=== PATIENT | male | born 1955 | race Caucasian/White ===

== ENCOUNTER 2018-05-02 16:10 | Inpatient (IN) ==
[2018-05-02] MEDS ORDERED: *HR* LORazepam 0.5 MG TABLET PO ONE (22:38)
--- NOTE | 2018-05-02 22:54 | Internal Med History&Physical ---
Date of Encounter: 05/02/18 Time of Encounter: 22:48 Internal Medicine - H&P: HPI Chief complaint: shortness Admitted From: Home Plans for Post Hospital Care: Home History of present illness: Taryn Reddy is a 63 year old man with ongoing tobacco dependence with resultant COPD, hypertension and hyperlipidemia who was admitted to [place] inpatient service on 04/28/18 after complaints of a 7 day history of progressive dyspnea with cough productive of yellow sputum that worsened over the preceding 3. Of note he has had multiple admissions for COPD and pneumonia, smokes a pack a day for the past 50 years. He is on home 2L O2 that he uses prn. He has remained hospitalized since then, receiving nebulizer therapy, steroids and cefdinir for 2 days and ceftriaxone for the last 2. It was felt that he has not improved sufficiently enough for which reason he is transferred here for further care. Outside records reviewed: His x-ray was reviewed independently by me and not showing any signs of lobar consolidation. He has been afebrile throughout his hospitalization and has a 3L oxygen requirement. ABG done earlier today shows a PCO2 of 58 and pH of 7.37 with PaO2 of 77. On arrival here he is not in significant respiratory distress but has notable labored breathing. He states that he has only improved minimally since his hospitalization. He states that when he gets steroids he becomes very anxious and typically requires some sedatives. He reports a 50 year history of smoking cigarettes and marijuana. Past Med Surg Social Fam HX - Past Medical History Medical history: arthritis, COPD, hyperlipidemia Additional medical history: Chronic Bronchitis, Psychiatric history: no psych history - Past Surgical History Additional surgical history: right ankle surgery - Social History Smoking Status: Former smoker Smokeless Tobacco Status: No Alcohol use: none Drug use: marijuana - Family History Father Living Status: Age at : 80 Cause of : colon ca Hx Family Cancer: Yes (colon) Mother Living Status: Age at : 80 Cause of : Copd, emphysema Hx Family Cardiac Disorders: No Hx Family Respiratory Disorders: Yes Hx Family Cancer: Yes (Uterine/ skin cancer) Hx Family GI Disorders: No Hx Family Endocrine Disorder: No Hx Family Neuromuscular Disorders: No Hx Family Neurologic Disorders: No Hx Family HEENT Disorders: No Hx Family Autoimmune Disorders: No Internal Medicine - H&P: Meds Albuterol Sulfate [Proair Hfa] 8.5 aerosol IH Q6H PRN 05/05/16 [History] Quetiapine Fumarate [Seroquel] 50 mg PO HS 01/03/16 [History] Simvastatin 20 mg PO HS 01/04/16 [History] Tiotropium [Spiriva] 18 mcg IH DAILY 01/04/16 [History] Budesonide/Formoterol 80/4.5 [Symbicort 80/4.5] 1 puff IH BID #1 inhaler [Rx] Cefdinir [Omnicef] 300 mg PO DAILY #5 capsule 01/06/16 [Rx] Famotidine [Pepcid] 20 mg PO BIDAC #40 tablet 01/06/16 [Rx] 3 Allergy/AdvReac Type Severity Reaction Status Date / Time No Known Allergies Allergy Verified 04/28/18 10:35 All Systems PM: A 10-system review of systems was performed and is negative for pertinent findings except as documented above in the HPI. - Constitutional Vitals: Temp Pulse Resp BP Pulse Ox 97.8 F 117 17 148/113 98 05/02/18 20:01 05/02/18 20:01 05/02/18 20:01 05/02/18 20:01 05/02/18 20:01 Exam: Vitals: Reviewed General: Cachectic appearing with some difficulty breathing and shorted sentences but able to speak coherently. Skin: Somewhat flushed. HEENT: Moist mucous membranes. No conjunctivae pallor. Neck: No lymphadenopathy. No JVD. No carotid bruits. No palpable thyroid. Chest: Widened AP thoracic diameter with reduced expansion. Decreased breath sounds bilaterally with scattered wheezes. Heart: Normal S1 & S2; rhythmic. Tachycardic. Abdomen: Non-distended, soft and non-tender to palpation. Extremities: (+) fingernail clubbing. Neurological: Awake, alert and oriented to person, place and time. No focal deficits. Psych: Affect appropriate. - Assessment and plan (1) Acute exacerbation of chronic obstructive airways disease Current Visit: Yes Status: Acute Assessment and plan: Poor response to inpatient course thus far. Will place on Bipap urgently and nebulizer therapy q2-4hrs. Will place on IV steroids for now and later transition to PO. Start azithromycin 500mg daily for 3 days. Close respiratory watch and supplemental oxygen to maintain O2>92% Check another ABG in the morning. (2) Acute respiratory failure with hypoxia Current Visit: Yes Status: Acute Assessment and plan: Will keep on supplemental oxygen and continuous pulse oximetry. (3) Current smoker Current Visit: Yes Status: Chronic Assessment and plan: Ongoing counseling and education provided with resources made available to reinforce his statement that he has now quit. (4) HLD (hyperlipidemia) Current Visit: Yes Status: Chronic Assessment and plan: Continue simvastatin. Qualifiers: Hyperlipidemia type: unspecified Qualified Code(s): E78.5 - Hyperlipidemia , unspecified (5) Hypertension Current Visit: Yes Status: Chronic Assessment and plan: Will start amlodipine 5mg daily. Qualifiers: Hypertension type: essential hypertension Qualified Code(s): I10 - Essential (primary) hypertension (6) DVT prophylaxis Current Visit: Yes Status: Acute Assessment and plan: SubQ heparin ordered. - Time Spent With Patient Total time spent is greater than 50% in coordination of care (as documented) at patient's floor/unit and/or counseling patient: Greater than 35 minutes
[2018-05-02] MEDS: Azithromycin 500 MG in D5% in Water 250 ML IVPB SCH (23:08)
[2018-05-03 04:35] LABS: ABG Base Excess 10 mEq/L (-2 to 3); ABG HCO3 40 mEq/L (21-27); ABG Oxygen Saturation 97 % (95-98); ABG PCO2 79 mmHg (35-45); ABG PH 7.31 pH Units (7.32-7.45); ABG PO2 101 mmHg (85-104); ABG TCO2 42 mEq/L (20-26)
[2018-05-03] MEDS: *HR* Heparin 5,000 UNIT/ML VIAL SQ SCH ×3 (05:45→21:21)
[2018-05-03 05:54] LABS: Alanine Aminotransferase 63 Units/L (7-52); Albumin 3.9 g/dL (3.5-5.7); Alkaline Phosphatase 64 Units/L (34-104); Aspartate Amino Transferase 30 Units/L (13-39); BUN/Creatinine Ratio 44 (6-26); Bilirubin,Total 0.6 mg/dL (0.3-1.0); Blood Urea Nitrogen 27 mg/dL (8-23); Calcium 9.1 mg/dL (8.6-10.3); Carbon Dioxide 37 mEq/L (23-29); Chloride 102 mEq/L (98-107); Glucose 96 mg/dL (70-105); Osmolality,Calculated 299 (280-300); Potassium 4.6 mEq/L (3.5-5.1); Sodium 142 mEq/L (136-145); Total Protein 5.9 g/dL (6.4-8.9); eGFR For Non-African Americans > 60 (> 60)
[2018-05-03] MEDS ORDERED: MethylPREDNISolone 40 MG/ML VIAL IVP SCH (06:00)
[2018-05-03] MEDS: Ipratropium/Albuterol Neb 3 ML IH SCH ×2 (06:34→19:36)
[2018-05-03] MEDS: amLODIPine 5 MG TABLET PO SCH (07:53)
[2018-05-03] MEDS: Famotidine 20 MG TABLET PO SCH ×2 (07:53→15:23)
--- NOTE | 2018-05-03 08:58 | Internal Med Progress Note ---
Hospitalist Progress Note - Encounter Date of Encounter: 05/03/18 Time of Encounter: 08:50 - Exam Vitals: Temp Pulse Resp BP Pulse Ox 97.5 F L 86 20 124/77 99 05/03/18 07:00 05/03/18 07:00 05/03/18 07:00 05/03/18 07:00 05/03/18 07:00 Exam: Vitals: Reviewed General: Cachectic appearing with some difficulty breathing and shorted sentences but able to speak coherently. Skin: Somewhat flushed. HEENT: Moist mucous membranes. No conjunctivae pallor. Neck: No lymphadenopathy. No JVD. No carotid bruits. No palpable thyroid. Chest: Widened AP thoracic diameter with reduced expansion. Decreased breath sounds bilaterally with scattered wheezes. Heart: Normal S1 & S2; rhythmic. Tachycardic. Abdomen: Non-distended, soft and non-tender to palpation. Extremities: (+) fingernail clubbing. Neurological: Awake, alert and oriented to person, place and time. No focal deficits. Psych: Affect appropriate. - Assessment and Plan (1) Acute on chronic respiratory failure with hypoxia and hypercapnia Current Visit: Yes Status: Acute Assessment and Plan: Likely 2/2 to acute COPD exacerbation. On BIPAP, round the clock nebs, and antibiotics (2) Acute exacerbation of chronic obstructive airways disease Current Visit: Yes Status: Acute Assessment and Plan: Will place on Bipap urgently and nebulizer therapy q2-4hrs. Will place on IV steroids for now and later transition to PO. Start on ceftriaxone and azithromycin 500mg daily. Monitor with serial ABGs (3) Hypertension Current Visit: Yes Status: Chronic Assessment and Plan: Will start amlodipine 5mg daily. (4) HLD (hyperlipidemia) Current Visit: Yes Status: Chronic Assessment and Plan: Continue simvastatin. (5) Current smoker Current Visit: Yes Status: Chronic Assessment and Plan: Ongoing counseling and education provided with resources made available to reinforce his statement that he has now quit. (6) DVT prophylaxis Current Visit: Yes Status: Acute Assessment and Plan: SubQ heparin ordered. - Time Spent with Patient Total time spent is greater than 50% in coordination of care (as documented) at patient's floor/unit and/or counseling patient: Internal Medicine: Result - Labs CBC & Chem 7: 05/03/18 04:45 Labs: BMP 05/03/18 04:45 Sodium 142 Potassium 4.6 Chloride 102 Carbon Dioxide 37 H BUN 27 H Creatinine 0.62 L Glucose 96 Calcium 9.1 Liver Function 05/03/18 Range/Units 04:45 Total Bilirubin 0.6 (0.3-1.0) mg/dL AST 30 (13-39) Units/L ALT 63 H (7-52) Units/L Alkaline Phosphatase 64 (34-104) Units/L Albumin 3.9 (3.5-5.7) g/dL - ABG Interpretation ABG results: ABG ABG pH 7.31 pH Units (7.32-7.45) L 05/03/18 04:31 ABG pCO2 79 mmHg (35-45) H* 05/03/18 04:31 ABG pO2 101 mmHg (85-104) 05/03/18 04:31 ABG O2 Saturation 97 % (95-98) 05/03/18 04:31 Consult Discharge Plan - Plan Referrals: Kin Fontanez MD [Primary Care Provider] - (3) Hypertension Qualifiers: Hypertension type: essential hypertension Qualified Code(s): I10 - Essential (primary) hypertension (4) HLD (hyperlipidemia) Qualifiers: Hyperlipidemia type: unspecified Qualified Code(s): E78.5 - Hyperlipidemia, unspecified
[2018-05-03] MEDS: Budesonide/Formoterol 160/4.5 1 PUFF INH IH SCH ×2 (11:37→19:37)
[2018-05-03 11:47] LABS: ABG Base Excess 10 mEq/L (-2 to 3); ABG HCO3 39 mEq/L (21-27); ABG Oxygen Saturation 99 % (95-98); ABG PCO2 71 mmHg (35-45); ABG PH 7.35 pH Units (7.32-7.45); ABG PO2 130 mmHg (85-104); ABG TCO2 41 mEq/L (20-26)
[2018-05-03] MEDS: cefTRIAXone 1,000 MG in Water for inj. (sterile) 20 ML 10 ML IVP SCH (13:24)
[2018-05-03] MEDS: methylPREDNISolone 125 MG/2 ML VIAL IVP SCH ×2 (15:23→23:49)
[2018-05-03] MEDS ORDERED: Ipratropium/Albuterol Neb 3 ML ONE (19:31)
[2018-05-03] MEDS ORDERED: *HR* LORazepam 2 MG/ML VIAL IVP ONE (22:12)
[2018-05-03] MEDS ORDERED: Levalbuterol Neb 1.25 MG/3 ML ONE (23:34)
[2018-05-03] MEDS: Azithromycin 500 MG in D5% in Water 250 ML IVPB SCH (23:51)
[2018-05-04] MEDS: Levalbuterol Neb 1.25 MG/3 ML IH SCH ×4 (03:58→21:48)
[2018-05-04] MEDS: *HR* Heparin 5,000 UNIT/ML VIAL SQ SCH ×3 (05:45→20:38)
[2018-05-04 06:20] LABS: Basophils % 0.2 %; Hematocrit 41.9 % (37.5-50.1); Hemoglobin 13.6 g/dL (12.9-16.9); Immature Granulocytes % 0.8 % (0-4); Lymphocytes # 0.7 K/mcL (0.6-4.6); Lymphocytes % 5.8 %; Mean Corpuscular HGB Conc 32.5 g/dL (31.6-35.5); Mean Corpuscular Hemoglobin 31.4 pg (28.0-33.3); Mean Corpuscular Volume 96.8 fL (83.0-100.0); Monocytes # 0.4 K/mcL (0.0-1.3); Monocytes % 3.6 %; Platelet Count 179 K/mcL (140-400); Red Blood Count 4.33 M/mcL (4.19-5.50); Red Cell Distribution Width 13.2 % (11.5-14.5); Segmented Neutrophils % 89.6 %
[2018-05-04 06:39] LABS: BUN/Creatinine Ratio 44 (6-26); Blood Urea Nitrogen 24 mg/dL (8-23); Calcium 9.2 mg/dL (8.6-10.3); Carbon Dioxide 33 mEq/L (23-29); Chloride 100 mEq/L (98-107); Glucose 137 mg/dL (70-105); Magnesium 2.3 mg/dL (1.6-2.6); Osmolality,Calculated 298 (280-300); Phosphorous 3.2 mg/dL (2.7-4.5); Potassium 4.4 mEq/L (3.5-5.1); Sodium 141 mEq/L (136-145); eGFR For Non-African Americans > 60 (> 60)
[2018-05-04] MEDS: methylPREDNISolone 125 MG/2 ML VIAL IVP SCH ×3 (09:33→23:44)
[2018-05-04] MEDS: amLODIPine 5 MG TABLET PO SCH (09:33)
[2018-05-04] MEDS: cefTRIAXone 1,000 MG in Water for inj. (sterile) 20 ML 10 ML IVP SCH (09:34)
[2018-05-04] MEDS: Famotidine 20 MG TABLET PO SCH ×2 (09:34→16:29)
[2018-05-04] MEDS: Budesonide/Formoterol 160/4.5 1 PUFF INH IH SCH ×2 (11:13→21:48)
[2018-05-04 11:20] LABS: ABG Base Excess 13 mEq/L (-2 to 3); ABG HCO3 42 mEq/L (21-27); ABG Oxygen Saturation 98 % (95-98); ABG PCO2 71 mmHg (35-45); ABG PH 7.38 pH Units (7.32-7.45); ABG PO2 111 mmHg (85-104); ABG TCO2 44 mEq/L (20-26)
[2018-05-04] MEDS: Nicotine 21 MG PATCH.TD24 TD SCH (11:47)
--- NOTE | 2018-05-04 14:04 | Internal Med Progress Note ---
Hospitalist Progress Note - Encounter Date of Encounter: 05/04/18 Time of Encounter: 10:30 - Subjective Interval History: Patient continues to remain short of breath even at rest, worse after speaking long sentences. Saturating well on nasal cannula. Denies chest pain, cough, wheezing, fever or chills. Continues to smoke, reports he just quit about one week ago. Does not follow with pulmonology as outpatient. Per nursing staff, patient was very agitated with BiPAP last night, received a dose of IV Ativan after which he became notably more confused and combative, had to be placed with a sitter. Currently alert and oriented; - Exam Vitals: Temp Pulse Resp BP Pulse Ox 97.8 F 77 16 137/90 100 05/04/18 11:00 05/04/18 11:00 05/04/18 11:13 05/04/18 11:00 05/04/18 11:13 Exam: General: Well-developed male sitting up in bed, mild distress, tachypneic; Skin: Warm and supple Chest: barrel chest; decreased air entry B/L, occasional expiratory wheezing+ Heart: Normal S1 & S2; rhythmic. No rubs or murmurs. Tachycardic; Abdomen: Non-distended, soft and nontender Extremities: No clubbing, cyanosis or edema. No calf tenderness. Normal distal pulses. Neurological: Awake, alert and oriented to person, place and time. No focal deficits. Psych: seems anxious; - Assessment and Plan (1) Acute exacerbation of chronic obstructive airways disease Current Visit: Yes Status: Acute Assessment and Plan: Patient likely has advanced COPD, along with tobacco dependence, now in exacerbation. Has received at least 4-5 days of cephalosporins, started on azithromycin yesterday. We will discontinue Rocephin and continue azithromycin. Continue IV steroids, bronchodilator nebulization, supplemental oxygen as needed. When necessary BiPAP support. ABG reviewed-compensated pH with PCO2 71 , which is probably his baseline. Patient likely would require overnight BiPAP qualification study. Check CT chest. We will consult pulmonology for further recommendations. (2) Hypertension Current Visit: Yes Status: Chronic Assessment and Plan: Blood pressure acceptable. Continue current management. (3) HLD (hyperlipidemia) Current Visit: Yes Status: Chronic (4) Current smoker Current Visit: Yes Status: Chronic Assessment and Plan: Smoking cessation counseling done, for 3 minutes. Start nicotine transdermal patch as needed. (5) DVT prophylaxis Current Visit: Yes Status: Acute Assessment and Plan: On subcutaneous heparin. (6) Acute on chronic respiratory failure with hypoxia and hypercapnia Current Visit: Yes Status: Acute Assessment and Plan: Currently saturating in low 90s on 4 L/m nasal cannula. He will require 6 minute walk test prior to discharge. - Time Spent with Patient Total time spent is greater than 50% in coordination of care (as documented) at patient's floor/unit and/or counseling patient: Internal Medicine: Result - Labs CBC & Chem 7: 05/04/18 05:25 05/04/18 05:25 Labs: Short CBC 05/04/18 Range/Units 05:25 WBC 11.2 H D (4.3-11.1) K/mcL Hgb 13.6 D (12.9-16.9) g/dL Hct 41.9 (37.5-50.1) % Plt Count 179 (140-400) K/mcL Neutrophils # 10.0 H (1.6-8.9) K/mcL BMP 05/04/18 05:25 Sodium 141 Potassium 4.4 Chloride 100 Carbon Dioxide 33 H BUN 24 H Creatinine 0.54 L Glucose 137 H Calcium 9.2 - ABG Interpretation ABG results: ABG ABG pH 7.38 pH Units (7.32-7.45) 05/04/18 11:12 ABG pCO2 71 mmHg (35-45) H* 05/04/18 11:12 ABG pO2 111 mmHg (85-104) H 05/04/18 11:12 ABG O2 Saturation 98 % (95-98) 05/04/18 11:12 - Impressions Impressions Chest CT 05/04/18 11:45 IMPRESSION: Moderate COPD. No evidence of acute process within the chest. D/ / 05/04/2018 13:33:59 Alejandro Tinoco MD / [facility]arter Interpreting Provider: Alejandro Tinoco MD - VTE Documentation of Mechanical Device: Graduated compression elastic hosiery Consult Discharge Plan - Plan Referrals: Kin Fontanez MD [Primary Care Provider] - (2) Hypertension Qualifiers: Hypertension type: essential hypertension Qualified Code(s): I10 - Essential (primary) hypertension (3) HLD (hyperlipidemia) Qualifiers: Hyperlipidemia type: unspecified Qualified Code(s): E78.5 - Hyperlipidemia, unspecified
--- NOTE | 2018-05-04 14:40 | Pulmonology Consult Note ---
Date of Encounter: 05/04/18 Time of Encounter: 13:30 Assessment and Plan (1) Acute exacerbation of chronic obstructive airways disease Current Visit: Yes Status: Acute Clinically patient has advanced COPD and has significant history of tobacco as well as marijuana abuse for more than 50 years and had discussed with him in length about important of quit smoking tobacco and marijuana and he stated he will do that. Patient is on appropriate treatment with systemic steroid, bronchodilators and empiric antibiotic. As outpatient he will need pulmonary function test as well as pulmonary rehabilitation. I have explained to him if he does not quit smoking prognosis is poor. Thank you for consultation. (2) Acute on chronic respiratory failure with hypoxia and hypercapnia Current Visit: Yes Status: Acute According to his ABG he has evidence of compensated primarily respiratory acidosis with hypercapnia and noninvasive ventilation would be helpful if patient and if they worsen and hopefully that will prevent invasive mechanical ventilation. (3) Tobacco abuse Current Visit: No Status: Chronic Advised patient to quit smoking. History of Present Illness Consult date: 05/04/18 Requesting physician: Carmen Gonsales Reason for consult: COPD Chief complaint: Dyspnea History of present illness: This is pleasant 63-year-old male with significant smoking tobacco and marijuana for more than 50 years who presented to the hospital with worsening of shortness of breath. Patient stated he has seen a strainer cleaner in the past and he is on long-term oxygen therapy at home at 2 L permanent. Patient has more productive cough, wheezing and dyspnea but he denies any hemoptysis. Patient stated that he is not tolerating prednisone, however he is receiving Solu-Medrol and he can tolerate ipratropium according to him. Patient denies any significant weight loss and it is not clear which inhalers he is using give any at home. Patient denies any family history of COPD and denies any contact with sick patients and he was treated as outpatient without significant improvement. Patient denies any fever or chills. He had an ABG which showed evidence of hypercapnic respiratory failure. Past Med Surg Social Fam HX - Past Medical History Medical history: arthritis, COPD, hyperlipidemia Additional medical history: Chronic Bronchitis, Psychiatric history: no psych history - Past Surgical History Additional surgical history: right ankle surgery - Social History Smoking Status: Former smoker Smokeless Tobacco Status: No Alcohol use: none Drug use: marijuana - Family History Father Living Status: Age at : 80 Cause of : colon ca Hx Family Cancer: Yes (colon) Mother Living Status: Age at : 80 Cause of : Copd, emphysema Hx Family Cardiac Disorders: No Hx Family Respiratory Disorders: Yes Hx Family Cancer: Yes (Uterine/ skin cancer) Hx Family GI Disorders: No Hx Family Endocrine Disorder: No Hx Family Neuromuscular Disorders: No Hx Family Neurologic Disorders: No Hx Family HEENT Disorders: No Hx Family Autoimmune Disorders: No Medications and Allergies Albuterol Sulfate [Proair Hfa] 8.5 aerosol IH Q6H PRN 01/03/16 [History] Quetiapine Fumarate [Seroquel] 50 mg PO HS 01/03/16 [History] Simvastatin 20 mg PO HS 01/04/16 [History] Budesonide/Formoterol 80/4.5 [Symbicort 80/4.5] 1 puff IH BID #1 inhaler [Rx] Aclidinium [place] [Tudorza Pressair] 1 puff IH BID 05/04/18 [History] 3 Allergy/AdvReac Type Severity Reaction Status Date / Time lorazepam [From Ativan] AdvReac Confusion Verified 05/04/18 02:09 All Systems: The remainder of the systems were reviewed and are negative Physical Examination Vital Signs: Vital Signs, Last 4 Hours Temp Pulse Resp BP Pulse Ox 05/04/18 11:13 16 100 05/04/18 11:00 97.8 F 77 16 137/90 99 General: Patient is in no acute distress. HEENT: Normocephalic atraumatic, pupils are equal round and reactive to light and accommodation, anicteric sclera, nares is patent, mucous membranes moist, no JVD, trachea is midline Cardiovascular: Normal sinus rhythm, S1 and S2 audible, no murmur or rubs Respiratory: Diminished and wheezing to auscultation bilaterally. Mild to moderate distress. wheezing. Patient using accessory muscles. Patient has barrel chest. Abdomen: Soft, nontender, nondistended, positive bowel sounds in all 4 quadrants Extremities: Warm, dry, trace lower extremity edema. Normal capillary refill. Neuro: Alert and oriented and follows commands. Grossly no neuro deficits. Skin: Warm to touch : No obvious abnormalities. Psych: Normal Results - Laboratory Findings CBC and BMP: 05/04/18 05:25 05/04/18 05:25 ABG ABG pH 7.38 pH Units (7.32-7.45) 05/04/18 11:12 ABG pCO2 71 mmHg (35-45) H* 05/04/18 11:12 ABG pO2 111 mmHg (85-104) H 05/04/18 11:12 ABG O2 Saturation 98 % (95-98) 05/04/18 11:12 Abnormal lab findings: Abnormal lab results WBC 11.2 K/mcL (4.3-11.1) H D 05/04/18 05:25 MPV 9.0 fL (9.4-12.4) L 05/04/18 05:25 Neutrophils # 10.0 K/mcL (1.6-8.9) H 05/04/18 05:25 ABG pCO2 71 mmHg (35-45) H* 05/04/18 11:12 ABG pO2 111 mmHg (85-104) H 05/04/18 11:12 ABG HCO3 42 mEq/L (21-27) H 05/04/18 11:12 ABG Total CO2 44 mEq/L (20-26) H 05/04/18 11:12 ABG Base Excess 13 mEq/L (-2 to 3) H 05/04/18 11:12 Carbon Dioxide 33 mEq/L (23-29) H 05/04/18 05:25 BUN 24 mg/dL (8-23) H 05/04/18 05:25 Creatinine 0.54 mg/dL (0.70-1.30) L 05/04/18 05:25 BUN/Creatinine Ratio 44 (6-26) H 05/04/18 05:25 Glucose 137 mg/dL (70-105) H 05/04/18 05:25 ALT 63 Units/L (7-52) H 05/03/18 04:45 Serum Total Protein 5.9 g/dL (6.4-8.9) L 05/03/18 04:45 Globulin 2.0 g/dL (2.4-3.5) L 05/03/18 04:45 - Diagnostic Findings Chest x-ray: report reviewed, image reviewed - Clinical Findings Intake & Output: Intake & Output 05/03/18 05/04/18 05/04/18 23:59 07:59 15:59 Intake Total 120 / 120 0 / 0 500 / 500 Output Total 140 / 140 350 / 350 200 / 200 Balance -20 / -20 -350 / -350 300 / 300 Weight 66.8 kg Consult Discharge Plan - Plan Referrals: Kin Fontanez MD [Primary Care Provider] -
[2018-05-04] MEDS: Azithromycin 500 MG in D5% in Water 250 ML IVPB SCH (23:43)
[2018-05-05] MEDS: Levalbuterol Neb 1.25 MG/3 ML IH SCH ×4 (03:05→23:09)
[2018-05-05 04:34] LABS: Basophils % 0.2 %; Hematocrit 40.9 % (37.5-50.1); Hemoglobin 13.4 g/dL (12.9-16.9); Immature Granulocytes % 1.3 % (0-4); Lymphocytes # 0.7 K/mcL (0.6-4.6); Lymphocytes % 7.6 %; Mean Corpuscular HGB Conc 32.8 g/dL (31.6-35.5); Mean Corpuscular Hemoglobin 31.5 pg (28.0-33.3); Monocytes # 0.5 K/mcL (0.0-1.3); Monocytes % 5.3 %; Neutrophils # 7.9 K/mcL (1.6-8.9); Platelet Count 183 K/mcL (140-400); Red Blood Count 4.26 M/mcL (4.19-5.50); Red Cell Distribution Width 13.2 % (11.5-14.5); Segmented Neutrophils % 85.6 %
[2018-05-05 04:59] LABS: BUN/Creatinine Ratio 44 (6-26); Blood Urea Nitrogen 25 mg/dL (8-23); Calcium 9.2 mg/dL (8.6-10.3); Carbon Dioxide 37 mEq/L (23-29); Chloride 99 mEq/L (98-107); Glucose 158 mg/dL (70-105); Magnesium 2.4 mg/dL (1.6-2.6); Osmolality,Calculated 300 (280-300); Phosphorous 3.3 mg/dL (2.7-4.5); Potassium 4.3 mEq/L (3.5-5.1); Sodium 141 mEq/L (136-145); eGFR For Non-African Americans > 60 (> 60)
[2018-05-05] MEDS: *HR* Heparin 5,000 UNIT/ML VIAL SQ SCH ×3 (06:22→21:30)
[2018-05-05] MEDS: Famotidine 20 MG TABLET PO SCH ×2 (08:22→15:27)
[2018-05-05] MEDS: amLODIPine 5 MG TABLET PO SCH (08:22)
[2018-05-05] MEDS: methylPREDNISolone 125 MG/2 ML VIAL IVP SCH (08:22)
[2018-05-05] MEDS: Nicotine 21 MG PATCH.TD24 TD SCH (08:24)
--- NOTE | 2018-05-05 08:26 | Pulmonology Progress Note ---
<June Samaniego M - Last Filed: 05/05/18 16:11> Date of Encounter: 05/05/18 Assessment and Plan (1) Acute exacerbation of chronic obstructive airways disease Current Visit: Yes Status: Acute (2) Acute on chronic respiratory failure with hypoxia and hypercapnia Current Visit: Yes Status: Acute (3) Tobacco abuse Current Visit: No Status: Chronic Objective PUL Vital signs: Last Vital Signs Temp 98.6 F 05/05/18 15:52 Pulse 94 05/05/18 15:52 Resp 16 05/05/18 15:53 BP 147/88 05/05/18 15:52 Pulse Ox 97 05/05/18 15:53 Results - Laboratory Findings CBC and BMP: 05/05/18 03:22 05/05/18 03:22 ABG ABG pH 7.38 pH Units (7.32-7.45) 05/04/18 11:12 ABG pCO2 71 mmHg (35-45) H* 05/04/18 11:12 ABG pO2 111 mmHg (85-104) H 05/04/18 11:12 ABG O2 Saturation 98 % (95-98) 05/04/18 11:12 Abnormal lab findings: Abnormal lab results MPV 9.0 fL (9.4-12.4) L 05/05/18 03:22 ABG pCO2 71 mmHg (35-45) H* 05/04/18 11:12 ABG pO2 111 mmHg (85-104) H 05/04/18 11:12 ABG HCO3 42 mEq/L (21-27) H 05/04/18 11:12 ABG Total CO2 44 mEq/L (20-26) H 05/04/18 11:12 ABG Base Excess 13 mEq/L (-2 to 3) H 05/04/18 11:12 Carbon Dioxide 37 mEq/L (23-29) H 05/05/18 03:22 BUN 25 mg/dL (8-23) H 05/05/18 03:22 Creatinine 0.57 mg/dL (0.70-1.30) L 05/05/18 03:22 BUN/Creatinine Ratio 44 (6-26) H 05/05/18 03:22 Glucose 158 mg/dL (70-105) H 05/05/18 03:22 ALT 63 Units/L (7-52) H 05/03/18 04:45 Serum Total Protein 5.9 g/dL (6.4-8.9) L 05/03/18 04:45 Globulin 2.0 g/dL (2.4-3.5) L 05/03/18 04:45 - Clinical Findings Intake & Output: Intake & Output 05/05/18 05/05/18 05/05/18 07:59 15:59 23:59 Intake Total 325 / 325 480 / 480 Output Total 300 / 300 425 / 425 Balance 25 55 / 55 Weight 66 kg Consult Discharge Plan - Plan Referrals: Kin Fontanez MD [Primary Care Provider] - - Attending Attestation I examined this patient and my medical decision-making was reviewed with the Resident Physician. I agree with the documented findings, disposition and treatment plan as described except to the extent set forth below. Patient seen and examined. Labs, radiology, chart personally reviewed. Agree with resident's history and physical, assessment, plan with following comments: HAND PACKER: Patient follows commands, Pulmonary: Acceptable oxygenation and ventilation. Overall there is no significant changes in patient condition which I expect it will be a slow recovery because of his advanced lung disease. This was discussed with primary team and please call for any questions.. <Oniel Carpenter - Last Filed: 05/05/18 17:02> Date of Encounter: 05/05/18 Time of Encounter: 11:23 Assessment and Plan (1) Acute exacerbation of chronic obstructive airways disease Current Visit: Yes Status: Acute No clinical change at this time Continue Symbicort and Albuterol nebs Add Spiriva which is pt's home med as well Continue Azithromycin (Day 4) Continue Solumedrol 60mg q8h Continue BiPAP as tolerated Supplemental O2 with SpO2 goal of >88% (2) Tobacco abuse Current Visit: No Status: Chronic Discussed importance of cessation for >10 minutes Continue nicoderm patch Subjective Principal diagnosis: COPD exacerbation Interval history: No acute events overnight, however pt was experiencing significant dyspnea during the encounter with this provider. Pt stated he tried to use the BiPAP earlier but felt like he "couldn't get any air". Of note, pt has history of panic attacks, and was requesting anxiety medication at this time. Denies any fever, chills, chest pain, abdominal pain, nausea, vomiting, dizziness, numbness, tingling, or headache. Objective PUL Vital signs: Last Vital Signs Temp 97.6 F 05/05/18 07:02 Pulse 87 05/05/18 07:02 Resp 16 05/05/18 07:02 BP 149/83 05/05/18 07:02 Pulse Ox 97 05/05/18 07:02 General appearance: no acute distress Eyes: nonicteric ENT: oropharynx moist Neck: supple, no lymphadenopathy, no JVD Effort: very labored Auscultation: bilateral: wheezes Percussion: bilateral: not dull Tactile fremitus: bilateral: normal Cardiovascular: other (tachycardic ) Integumentary: normal Extremities: no cyanosis, no edema, no clubbing, pink and warm Musculoskeletal: no deformities Gait: normal posture normal mental status, non-focal exam mood appropriate, affect normal Results - Laboratory Findings CBC and BMP: 05/05/18 03:22 05/05/18 03:22 ABG ABG pH 7.38 pH Units (7.32-7.45) 05/04/18 11:12 ABG pCO2 71 mmHg (35-45) H* 05/04/18 11:12 ABG pO2 111 mmHg (85-104) H 05/04/18 11:12 ABG O2 Saturation 98 % (95-98) 05/04/18 11:12 Abnormal lab findings: Abnormal lab results MPV 9.0 fL (9.4-12.4) L 05/05/18 03:22 ABG pCO2 71 mmHg (35-45) H* 05/04/18 11:12 ABG pO2 111 mmHg (85-104) H 05/04/18 11:12 ABG HCO3 42 mEq/L (21-27) H 05/04/18 11:12 ABG Total CO2 44 mEq/L (20-26) H 05/04/18 11:12 ABG Base Excess 13 mEq/L (-2 to 3) H 05/04/18 11:12 Carbon Dioxide 37 mEq/L (23-29) H 05/05/18 03:22 BUN 25 mg/dL (8-23) H 05/05/18 03:22 Creatinine 0.57 mg/dL (0.70-1.30) L 05/05/18 03:22 BUN/Creatinine Ratio 44 (6-26) H 05/05/18 03:22 Glucose 158 mg/dL (70-105) H 05/05/18 03:22 ALT 63 Units/L (7-52) H 05/03/18 04:45 Serum Total Protein 5.9 g/dL (6.4-8.9) L 05/03/18 04:45 Globulin 2.0 g/dL (2.4-3.5) L 05/03/18 04:45 - Diagnostic Findings CT scan - chest: report reviewed, image reviewed - Clinical Findings Intake & Output: Intake & Output 05/04/18 05/05/18 05/05/18 23:59 07:59 15:59 Intake Total 220 / 220 325 / 325 Output Total 200 / 200 300 / 300 Balance 25 / 25 Weight 66 kg - VTE Documentation of Mechanical Device: Graduated compression elastic hosiery
[2018-05-05] MEDS: Budesonide/Formoterol 160/4.5 1 PUFF INH IH SCH ×2 (10:44→23:09)
[2018-05-05] MEDS: MethylPREDNISolone 40 MG/ML VIAL IVP SCH (15:27)
[2018-05-05] MEDS: Tiotropium 18 MCG inhalation IH SCH (15:50)
--- NOTE | 2018-05-05 16:08 | Internal Med Progress Note ---
Hospitalist Progress Note - Encounter Date of Encounter: 05/05/18 Time of Encounter: 09:45 - Subjective Interval History: Patient has underlying anxiety; continues to have abdominal muscle use for breathing; reports some shortness of breath even at rest. No fever/chills, abdominal pain, cough; off 1:1 sitter now; - Exam Vitals: Temp Pulse Resp BP Pulse Ox 98.6 F 94 16 147/88 97 05/05/18 15:52 05/05/18 15:52 05/05/18 15:53 05/05/18 15:52 05/05/18 15:53 Exam: General: Well-developed male sitting up in bed, mild distress, tachypneic; Skin: Warm and supple Chest: barrel chest; decreased air entry B/L, occasional expiratory wheezing+ ? paradoxical breathing Heart: Normal S1 & S2; rhythmic. No rubs or murmurs. Abdomen: Non-distended, soft and nontender Extremities: No clubbing, cyanosis or edema. No calf tenderness. Normal distal pulses. Neurological: Awake, alert and oriented to person, place and time. No focal deficits. Psych: seems anxious; - Assessment and Plan (1) Acute exacerbation of chronic obstructive airways disease Current Visit: Yes Status: Acute Assessment and Plan: Patient likely has advanced COPD, along with tobacco dependence, now in exacerbation. Pulmonology consult appreciated. Continue azithromycin, taper down IV steroids as tolerated. Continue bronchodilator nebulization, ICS, supplemental oxygen, wean down FiO2 as tolerated. Patient would probably benefit from noninvasive positive pressure ventilation with BiPAP support as tolerated, although he cannot wear it continuously due to anxiety. We will start when necessary hydroxyzine for anxiety. CT chest shows moderate COPD, no acute process. (2) Hypertension Current Visit: Yes Status: Chronic Assessment and Plan: Blood pressure minimally elevated above target. Increase amlodipine, monitor closely. (3) HLD (hyperlipidemia) Current Visit: Yes Status: Chronic (4) Current smoker Current Visit: Yes Status: Chronic Assessment and Plan: Continue nicotine transdermal patch as needed. (5) DVT prophylaxis Current Visit: Yes Status: Acute (6) Acute on chronic respiratory failure with hypoxia and hypercapnia Current Visit: Yes Status: Acute Assessment and Plan: Patient does have 3 L/m supplemental oxygen via nasal cannula at home. Currently requiring 3-3.5 L/m. Wean down as tolerated; - Time Spent with Patient Total time spent is greater than 50% in coordination of care (as documented) at patient's floor/unit and/or counseling patient: Plan of Care Discussed with: patient Internal Medicine: Result - Labs CBC & Chem 7: 05/05/18 03:22 05/05/18 03:22 Labs: Short CBC 05/05/18 Range/Units 03:22 WBC 9.3 (4.3-11.1) K/mcL Hgb 13.4 (12.9-16.9) g/dL Hct 40.9 (37.5-50.1) % Plt Count 183 (140-400) K/mcL Neutrophils # 7.9 (1.6-8.9) K/mcL BMP 05/05/18 03:22 Sodium 141 Potassium 4.3 Chloride 99 Carbon Dioxide 37 H BUN 25 H Creatinine 0.57 L Glucose 158 H Calcium 9.2 - ABG Interpretation ABG results: ABG ABG pH 7.38 pH Units (7.32-7.45) 05/04/18 11:12 ABG pCO2 71 mmHg (35-45) H* 05/04/18 11:12 ABG pO2 111 mmHg (85-104) H 05/04/18 11:12 ABG O2 Saturation 98 % (95-98) 05/04/18 11:12 - VTE Documentation of Mechanical Device: Graduated compression elastic hosiery Consult Discharge Plan - Plan Referrals: Kin Fontanez MD [Primary Care Provider] - (2) Hypertension Qualifiers: Hypertension type: essential hypertension Qualified Code(s): I10 - Essential (primary) hypertension (3) HLD (hyperlipidemia) Qualifiers: Hyperlipidemia type: unspecified Qualified Code(s): E78.5 - Hyperlipidemia, unspecified
[2018-05-05] MEDS: Azithromycin 250 MG TABLET PO SCH (21:29)
[2018-05-06] MEDS: MethylPREDNISolone 40 MG/ML VIAL IVP SCH ×4 (00:04→20:32)
[2018-05-06 04:05] LABS: Basophils % 0.1 %; Hematocrit 40.1 % (37.5-50.1); Hemoglobin 13.1 g/dL (12.9-16.9); Immature Granulocytes % 2.4 % (0-4); Lymphocytes # 0.7 K/mcL (0.6-4.6); Lymphocytes % 6.5 %; Mean Corpuscular HGB Conc 32.7 g/dL (31.6-35.5); Mean Corpuscular Hemoglobin 31.6 pg (28.0-33.3); Mean Corpuscular Volume 96.9 fL (83.0-100.0); Mean Platelet Volume 8.7 fL (9.4-12.4); Monocytes # 0.7 K/mcL (0.0-1.3); Monocytes % 6.7 %; Neutrophils # 8.4 K/mcL (1.6-8.9); Platelet Count 185 K/mcL (140-400); Red Blood Count 4.14 M/mcL (4.19-5.50); Red Cell Distribution Width 13.3 % (11.5-14.5); Segmented Neutrophils % 84.3 %
[2018-05-06] MEDS: Levalbuterol Neb 1.25 MG/3 ML IH SCH ×4 (04:11→21:23)
[2018-05-06 04:17] LABS: BUN/Creatinine Ratio 53 (6-26); Blood Urea Nitrogen 28 mg/dL (8-23); Carbon Dioxide 36 mEq/L (23-29); Chloride 104 mEq/L (98-107); Glucose 160 mg/dL (70-105); Magnesium 2.4 mg/dL (1.6-2.6); Osmolality,Calculated 303 (280-300); Phosphorous 3.9 mg/dL (2.7-4.5); Potassium 4.4 mEq/L (3.5-5.1); Sodium 142 mEq/L (136-145); eGFR For Non-African Americans > 60 (> 60)
[2018-05-06] MEDS: *HR* Heparin 5,000 UNIT/ML VIAL SQ SCH ×3 (05:45→20:31)
--- NOTE | 2018-05-06 08:51 | Pulmonology Progress Note ---
<Oniel Carpenter - Last Filed: 05/06/18 14:36> Date of Encounter: 05/06/18 Time of Encounter: 10:02 Assessment and Plan (1) Acute exacerbation of chronic obstructive airways disease Current Visit: Yes Status: Acute No clinical change at this time, most episodes of dyspnea are related to panic attacks and anxiety Psych to see for anxiety Continue Symbicort and Spiriva Continue Albuterol nebs Continue Azithromycin (Day 5) Decrease Solumedrol to 40mg Q12H Continue BiPAP as tolerated Supplemental O2 with SpO2 goal of >88% (2) Tobacco abuse Current Visit: No Status: Chronic Discussed importance of cessation for >10 minutes Continue nicoderm patch Subjective Principal diagnosis: COPD exacerbation Interval history: No acute events overnight. Pt seated on side of bed. States dyspnea has improved slightly. Admits to using BiPAP successfully since yesterday. Denies any fever, chills, chest pain, abdominal pain, nausea, vomiting, dizziness, numbness, tingling, or headache. Objective PUL Vital signs: Last Vital Signs Temp 97.4 F L 05/06/18 06:26 Pulse 83 05/06/18 06:26 Resp 20 05/06/18 04:12 BP 153/89 05/06/18 06:26 Pulse Ox 95 05/06/18 04:12 General appearance: alert, appears uncomfortable Eyes: nonicteric ENT: oropharynx moist Neck: supple, no lymphadenopathy, no JVD Effort: mildly labored Auscultation: bilateral: wheezes Percussion: bilateral: not dull Tactile fremitus: bilateral: normal Cardiovascular: other (tachycardic ) Gastrointestinal: soft, non-tender, non-distended Integumentary: normal Extremities: no cyanosis, no edema, no clubbing, pink and warm Musculoskeletal: no deformities Gait: normal posture normal mental status, non-focal exam anxious Results - Laboratory Findings CBC and BMP: 05/06/18 03:48 05/06/18 03:48 ABG ABG pH 7.38 pH Units (7.32-7.45) 05/04/18 11:12 ABG pCO2 71 mmHg (35-45) H* 05/04/18 11:12 ABG pO2 111 mmHg (85-104) H 05/04/18 11:12 ABG O2 Saturation 98 % (95-98) 05/04/18 11:12 Abnormal lab findings: Abnormal lab results RBC 4.14 M/mcL (4.19-5.50) L 05/06/18 03:48 MPV 8.7 fL (9.4-12.4) L 05/06/18 03:48 ABG pCO2 71 mmHg (35-45) H* 05/04/18 11:12 ABG pO2 111 mmHg (85-104) H 05/04/18 11:12 ABG HCO3 42 mEq/L (21-27) H 05/04/18 11:12 ABG Total CO2 44 mEq/L (20-26) H 05/04/18 11:12 ABG Base Excess 13 mEq/L (-2 to 3) H 05/04/18 11:12 Carbon Dioxide 36 mEq/L (23-29) H 05/06/18 03:48 BUN 28 mg/dL (8-23) H 05/06/18 03:48 Creatinine 0.53 mg/dL (0.70-1.30) L 05/06/18 03:48 BUN/Creatinine Ratio 53 (6-26) H 05/06/18 03:48 Glucose 160 mg/dL (70-105) H 05/06/18 03:48 POC Glucose 170 mg/dL (70-99) H 05/05/18 19:16 Calculated Osmolality 303 (280-300) H 05/06/18 03:48 ALT 63 Units/L (7-52) H 05/03/18 04:45 Serum Total Protein 5.9 g/dL (6.4-8.9) L 05/03/18 04:45 Globulin 2.0 g/dL (2.4-3.5) L 05/03/18 04:45 - Clinical Findings Intake & Output: Intake & Output 05/05/18 05/06/18 05/06/18 23:59 07:59 15:59 Output Total 125 / 125 400 / 400 Balance -125 / -125 -400 / -400 Weight 62.8 kg - VTE Documentation of Mechanical Device: Graduated compression elastic hosiery Consult Discharge Plan - Plan Additional Instructions: 1. Continue propranolol 10 mg PO TID for anxiety. 2. Recommend diazepam 2.5 mg PO q6H prn of break thru anxiety Referrals: Kin Fontanez MD [Non-Partnered Physician] - <June Samaniego - Last Filed: 05/06/18 15:21> Date of Encounter: 05/06/18 Assessment and Plan (1) Acute exacerbation of chronic obstructive airways disease Current Visit: Yes Status: Acute (2) Acute on chronic respiratory failure with hypoxia and hypercapnia Current Visit: Yes Status: Acute (3) Tobacco abuse Current Visit: No Status: Chronic Objective PUL Vital signs: Last Vital Signs Temp 97.4 F L 05/06/18 06:26 Pulse 89 05/06/18 15:11 Resp 18 05/06/18 15:18 BP 150/78 05/06/18 15:11 Pulse Ox 92 05/06/18 15:18 Results - Laboratory Findings CBC and BMP: 05/06/18 03:48 05/06/18 03:48 ABG ABG pH 7.38 pH Units (7.32-7.45) 05/04/18 11:12 ABG pCO2 71 mmHg (35-45) H* 05/04/18 11:12 ABG pO2 111 mmHg (85-104) H 05/04/18 11:12 ABG O2 Saturation 98 % (95-98) 05/04/18 11:12 Abnormal lab findings: Abnormal lab results RBC 4.14 M/mcL (4.19-5.50) L 05/06/18 03:48 MPV 8.7 fL (9.4-12.4) L 05/06/18 03:48 ABG pCO2 71 mmHg (35-45) H* 05/04/18 11:12 ABG pO2 111 mmHg (85-104) H 05/04/18 11:12 ABG HCO3 42 mEq/L (21-27) H 05/04/18 11:12 ABG Total CO2 44 mEq/L (20-26) H 05/04/18 11:12 ABG Base Excess 13 mEq/L (-2 to 3) H 05/04/18 11:12 Carbon Dioxide 36 mEq/L (23-29) H 05/06/18 03:48 BUN 28 mg/dL (8-23) H 05/06/18 03:48 Creatinine 0.53 mg/dL (0.70-1.30) L 05/06/18 03:48 BUN/Creatinine Ratio 53 (6-26) H 05/06/18 03:48 Glucose 160 mg/dL (70-105) H 05/06/18 03:48 POC Glucose 170 mg/dL (70-99) H 05/05/18 19:16 Calculated Osmolality 303 (280-300) H 05/06/18 03:48 ALT 63 Units/L (7-52) H 05/03/18 04:45 Serum Total Protein 5.9 g/dL (6.4-8.9) L 05/03/18 04:45 Globulin 2.0 g/dL (2.4-3.5) L 05/03/18 04:45 - Clinical Findings Intake & Output: Intake & Output 05/05/18 05/06/18 05/06/18 23:59 07:59 15:59 Intake Total 480 / 480 Output Total 125 / 125 400 / 400 200 / 200 Balance -125 / -125 -400 / -400 280 / 280 Weight 62.8 kg - Attending Attestation I examined this patient and my medical decision-making was reviewed with the Resident Physician. I agree with the documented findings, disposition and treatment plan as described except to the extent set forth below. Patient seen and examined. Labs, radiology, chart personally reviewed. 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 Same recommendation regarding continuation of bronchodilators and outpatient workup. Please call for any questions.
[2018-05-06] MEDS: amLODIPine 5 MG TABLET PO SCH (09:02)
[2018-05-06] MEDS: Nicotine 21 MG PATCH.TD24 TD SCH (09:02)
[2018-05-06] MEDS: Famotidine 20 MG TABLET PO SCH ×2 (09:03→15:56)
[2018-05-06] MEDS: Budesonide/Formoterol 160/4.5 1 PUFF INH IH SCH ×2 (11:09→21:23)
[2018-05-06] MEDS: Tiotropium 18 MCG inhalation IH SCH (11:10)
[2018-05-06] MEDS ORDERED: diazePAM 2 MG TABLET PO ONE (12:17)
[2018-05-06] MEDS ORDERED: diazePAM 5 MG TABLET PO ONE (12:45)
--- NOTE | 2018-05-06 13:36 | Internal Med Progress Note ---
Hospitalist Progress Note - Encounter Date of Encounter: 05/06/18 Time of Encounter: 10:00 - Subjective Interval History: breathing better and sitting up when I saw him, but he reportedly has been having significant anxiety and respiratory distress from that, desaturating and requiring higher than baseline O2; he reports that he has been smoking Marijuana for a long time for his anxiety, and maybe "he will just go back to smoking" because he cannot take ethis anxiety anymore; - Exam Vitals: Temp Pulse Resp BP Pulse Ox 97.4 F L 93 18 143/82 92 05/06/18 06:26 05/06/18 10:36 05/06/18 11:10 05/06/18 10:36 05/06/18 11:10 Exam: General: Well-developed male sitting up in bed Skin: Warm and supple Chest: barrel chest; decreased air entry B/L, occasional expiratory wheezing+ Heart: Normal S1 & S2; rhythmic. No rubs or murmurs. Abdomen: Non-distended, soft and nontender Extremities: No clubbing, cyanosis or edema. No calf tenderness. Normal distal pulses. Neurological: Awake, alert and oriented to person, place and time. No focal deficits. Psych: seems anxious; - Assessment and Plan (1) Acute exacerbation of chronic obstructive airways disease Current Visit: Yes Status: Acute Assessment and Plan: Patient likely has advanced COPD, along with tobacco dependence, now in exacerbation. Pulmonology on board, recommendations appreciated. Continue azithromycin, taper down IV steroids as tolerated- now on Solumedrol [id number]. Continue bronchodilator nebulization, ICS, supplemental oxygen, wean down FiO2 as tolerated. BiPAP as tolerated; (2) Anxiety Current Visit: Yes Status: Acute Assessment and Plan: patient has chronic anxiety and panic attacks, for which he has not sought medical attention, but has been smoking weed; developed adverse reaction to IV Ativan a few days ago, with significant confusion/agitation; Hydroxyzine is not really helping him; will start Propranolol for anxiety and panic attacks; will consult Psychiatry for further recommendations; (3) Hypertension Current Visit: Yes Status: Chronic (4) HLD (hyperlipidemia) Current Visit: Yes Status: Chronic (5) Current smoker Current Visit: Yes Status: Chronic Assessment and Plan: Continue nicotine transdermal patch as needed. (6) DVT prophylaxis Current Visit: Yes Status: Acute (7) Acute on chronic respiratory failure with hypoxia and hypercapnia Current Visit: Yes Status: Acute - Time Spent with Patient Total time spent is greater than 50% in coordination of care (as documented) at patient's floor/unit and/or counseling patient: Internal Medicine: Result - Labs CBC & Chem 7: 05/06/18 03:48 05/06/18 03:48 Labs: Short CBC 05/06/18 Range/Units 03:48 WBC 9.9 (4.3-11.1) K/mcL Hgb 13.1 (12.9-16.9) g/dL Hct 40.1 (37.5-50.1) % Plt Count 185 (140-400) K/mcL Neutrophils # 8.4 (1.6-8.9) K/mcL BMP 05/06/18 03:48 Sodium 142 Potassium 4.4 Chloride 104 Carbon Dioxide 36 H BUN 28 H Creatinine 0.53 L Glucose 160 H Calcium 9.0 - ABG Interpretation ABG results: ABG ABG pH 7.38 pH Units (7.32-7.45) 05/04/18 11:12 ABG pCO2 71 mmHg (35-45) H* 05/04/18 11:12 ABG pO2 111 mmHg (85-104) H 05/04/18 11:12 ABG O2 Saturation 98 % (95-98) 05/04/18 11:12 - VTE Documentation of Mechanical Device: Graduated compression elastic hosiery Consult Discharge Plan - Plan Referrals: Kin Fontanez MD [Primary Care Provider] - (3) Hypertension Qualifiers: Hypertension type: essential hypertension Qualified Code(s): I10 - Essential (primary) hypertension (4) HLD (hyperlipidemia) Qualifiers: Hyperlipidemia type: unspecified Qualified Code(s): E78.5 - Hyperlipidemia, unspecified
--- NOTE | 2018-05-06 13:40 | Consult Note ---
Date of Encounter: 05/06/18 Time of Encounter: 11:00 Assessment & Recommendation (1) Anxiety Current visit: Yes Status: Acute History of Present Illness Patient: new to practice Requesting Physician: Camren Gonsales MD Reason for consult: exacerbation of agitation and anxiety History of present illness: Pt is a 63 yo ,, male, who presents for hx of agitaiton and anxiety . Pt noted recent exacerbation of agitaiton and anxiety that was exacerbated via 1 mg IV of ativan. Pt states "I just feel so anxious doc." I feel safe and comfortable on the unit. Pt denied any side effects to current medications. Pt was in agreement with current treatment plan. Pt noted that he is doing alright today. Pt noted he slept 3-4 hours broken night. Pt noted his appetite is reduced. Pt rated his depression a 0, on a scale of zero to ten with ten being the worst and zero being none. Pt rate his anxiety a 10, on the same scale. Pt denied any auditory or visual hallucinations. Pt denied any current thoughts to harm himself or anyone else. Pt denied any hx of seizures, TBIs, HEP C or HIV. No TD noted, AIMS=0 Assessment/Plan 1.Interval hx 2.Continue current medications 3.Review current labs 4.Pt had an opportunity to ask questions and discuss current treatment plan. 5.Supportive therapy was provided 6.Pt encouraged to consider group or individual therapy 7.Pt was in agreement with treatment plan. 8.Pt was educated on the risks benefits and side effects of current medications. 9. Continue propranolol 10 mg PO TID for anxiety. 10. Recommend diazepam 2.5 mg PO q6H prn of break thru anxiety CC: Carmen Gonsales MD Past Med Surg Social Fam HX - Past Medical History Medical history: arthritis, COPD, hyperlipidemia - Past Psychiatric History Psychiatric history: Reports: anxiety Family psychiatric history: No Family History of Suicide: None - Social History Smoking Status: Former smoker Smokeless Tobacco Status: No Alcohol use: none Drug use: marijuana - Family History Father Living Status: Age at : 80 Cause of : colon ca Hx Family Cancer: Yes (colon) Mother Living Status: Age at : 80 Cause of : Copd, emphysema Hx Family Cardiac Disorders: No Hx Family Respiratory Disorders: Yes Hx Family Cancer: Yes (Uterine/ skin cancer) Hx Family GI Disorders: No Hx Family Endocrine Disorder: No Hx Family Neuromuscular Disorders: No Hx Family Neurologic Disorders: No Hx Family HEENT Disorders: No Hx Family Autoimmune Disorders: No Medications & Allergies Albuterol Sulfate [Proair Hfa] 8.5 aerosol IH Q6H PRN 01/03/16 [History] Quetiapine Fumarate [Seroquel] 50 mg PO HS 01/03/16 [History] Simvastatin 20 mg PO HS 01/04/16 [History] Budesonide/Formoterol 80/4.5 [Symbicort 80/4.5] 1 puff IH BID #1 inhaler [Rx] Aclidinium Ionia [Tudorza Pressair] 1 puff IH BID 05/04/18 [History] 3 Allergy/AdvReac Type Severity Reaction Status Date / Time lorazepam [From Ativan] AdvReac Confusion Verified 05/04/18 02:09 Review of Systems Constitutional: Denies: fever, chills, weakness, weight change Eyes: Denies: eye pain, vision change Ears, Nose, Throat: Denies: ear pain, throat pain, dental pain, hearing loss, congestion Cardiovascular: Denies: chest pain, palpitations, dyspnea on exertion Respiratory: Denies: cough, dyspnea, wheezes Gastrointestinal: Denies: abdominal pain, nausea, vomiting, diarrhea, constipation Genitourinary male: Denies: urgency, dysuria, frequency, genital lesions Musculoskeletal: Denies: joint swelling, joint pain Integumentary: Denies: rash, lesions, pruritus Neurological: Denies: headache, weakness, numbness, memory loss Psychiatric: Reports: anxiety Endocrine: Denies: fatigue, heat or cold intolerance Hematologic/Lymphatic: Denies: easy bruising, lymphadenopathy Allergic/Immunologic: Denies: urticaria, itchy eyes Psychiatry Exam - Constitutional Vitals: Temp Pulse Resp BP Pulse Ox 97.4 F L 93 18 143/82 92 05/06/18 06:26 05/06/18 10:36 05/06/18 11:10 05/06/18 10:36 05/06/18 11:10 General appearance: age & developmentally appropriate, well-groomed, well- nourished - Musculoskeletal Gait: normal Station: relaxed Strength & Tone: normal for patient - Psychiatric Patient Orientation: Yes Person, Yes Time, Yes Place Level of alertness: Alert Behavior: calm, cooperative, anxious Psychomotor activity: Normal Eye Contact: Maintains Eye Contact Mood Description: Euthymic/stable, Anxious Affect description: congruent with mood, full range, anxious Speech Volume: Normal Speech pattern: normal rate, normal rhythm, normal tone, fluent, spontaneous Language & Vocabulary: consistent with education Thought Process: Linear, Goal Oriented Thought Content: No Suicidal ideation, No Homicidal ideation, No Overt delusions Perceptual Disturbances: No Auditory hallucinations, No Visual hallucinations Attention Span Ability: Capable of Focused Attention Memory Description: Grossly Intact Patient Reliability: Reliable Historian Fund of knowledge: Yes abstraction ability, Yes aware of current events Intelligence Estimate: Average Judgment: Limited Insight: Partial Results - Labs Labs: Laboratory Last Values WBC 9.9 K/mcL (4.3-11.1) 05/06/18 03:48 RBC 4.14 M/mcL (4.19-5.50) L 05/06/18 03:48 Hgb 13.1 g/dL (12.9-16.9) 05/06/18 03:48 Hct 40.1 % (37.5-50.1) 05/06/18 03:48 MCV 96.9 fL (83.0-100.0) 05/06/18 03:48 MCH 31.6 pg (28.0-33.3) 05/06/18 03:48 MCHC 32.7 g/dL (31.6-35.5) 05/06/18 03:48 RDW 13.3 % (11.5-14.5) 05/06/18 03:48 Plt Count 185 K/mcL (140-400) 05/06/18 03:48 MPV 8.7 fL (9.4-12.4) L 05/06/18 03:48 Immature Gran % 2.4 % (0-4) 05/06/18 03:48 Seg Neutrophils % 84.3 % 05/06/18 03:48 Lymphocytes % 6.5 % 05/06/18 03:48 Monocytes % 6.7 % 05/06/18 03:48 Eosinophils % 0.0 % 05/06/18 03:48 Basophils % 0.1 % 05/06/18 03:48 Neutrophils # 8.4 K/mcL (1.6-8.9) 05/06/18 03:48 Lymphocytes # 0.7 K/mcL (0.6-4.6) 05/06/18 03:48 Monocytes # 0.7 K/mcL (0.0-1.3) 05/06/18 03:48 Eosinophils # 0.0 K/mcL (0.0-0.6) 05/06/18 03:48 Basophils # 0.0 K/mcL (0.0-0.2) 05/06/18 03:48 Sample Site R Radial 05/04/18 11:12 ABG pH 7.38 pH Units (7.32-7.45) 05/04/18 11:12 ABG pCO2 71 mmHg (35-45) H* 05/04/18 11:12 ABG pO2 111 mmHg (85-104) H 05/04/18 11:12 ABG HCO3 42 mEq/L (21-27) H 05/04/18 11:12 ABG Total CO2 44 mEq/L (20-26) H 05/04/18 11:12 ABG O2 Saturation 98 % (95-98) 05/04/18 11:12 ABG Base Excess 13 mEq/L (-2 to 3) H 05/04/18 11:12 Wenceslao Test Positive 05/04/18 11:12 O2 Delivery Device Cannula 05/04/18 11:12 Inspired O2 4.0 (1-15=lpm [id number]=%) 05/04/18 11:12 Sodium 142 mEq/L (136-145) 05/06/18 03:48 Potassium 4.4 mEq/L (3.5-5.1) 05/06/18 03:48 Chloride 104 mEq/L (98-107) 05/06/18 03:48 Carbon Dioxide 36 mEq/L (23-29) H 05/06/18 03:48 BUN 28 mg/dL (8-23) H 05/06/18 03:48 Creatinine 0.53 mg/dL (0.70-1.30) L 05/06/18 03:48 Est GFR ( Amer) > 60 (> 60) 05/06/18 03:48 Est GFR (Non-Af Amer) > 60 (> 60) 05/06/18 03:48 BUN/Creatinine Ratio 53 (6-26) H 05/06/18 03:48 Glucose 160 mg/dL (70-105) H 05/06/18 03:48 POC Glucose 170 mg/dL (70-99) H 05/05/18 19:16 Calculated Osmolality 303 (280-300) H 05/06/18 03:48 Calcium 9.0 mg/dL (8.6-10.3) 05/06/18 03:48 Phosphorus 3.9 mg/dL (2.7-4.5) 05/06/18 03:48 Magnesium 2.4 mg/dL (1.6-2.6) 05/06/18 03:48 Total Bilirubin 0.6 mg/dL (0.3-1.0) 05/03/18 04:45 AST 30 Units/L (13-39) 05/03/18 04:45 ALT 63 Units/L (7-52) H 05/03/18 04:45 Alkaline Phosphatase 64 Units/L (34-104) 05/03/18 04:45 Serum Total Protein 5.9 g/dL (6.4-8.9) L 05/03/18 04:45 Albumin 3.9 g/dL (3.5-5.7) 05/03/18 04:45 Globulin 2.0 g/dL (2.4-3.5) L 05/03/18 04:45 Albumin/Globulin Ratio 2.0 (1.1-2.2) 05/03/18 04:45 Consult Discharge Plan - Plan Additional Instructions: 1. Continue propranolol 10 mg PO TID for anxiety. 2. Recommend diazepam 2.5 mg PO q6H prn of break thru anxiety Referrals: Kin Fontanez MD [Primary Care Provider] -
[2018-05-06] MEDS ORDERED: diazePAM 2 MG TABLET PO PRN (16:55)
[2018-05-06] MEDS: Azithromycin 250 MG TABLET PO SCH (20:30)
[2018-05-06] MEDS: diazePAM 5 MG TABLET PO PRN (21:30)
[2018-05-07] MEDS: Levalbuterol Neb 1.25 MG/3 ML IH SCH ×4 (04:08→21:54)
[2018-05-07 04:19] LABS: Basophils # 0.1 K/mcL (0.0-0.2); Basophils % 0.4 %; Hematocrit 45.3 % (37.5-50.1); Hemoglobin 14.9 g/dL (12.9-16.9); Immature Granulocytes % 3.9 % (0-4); Lymphocytes # 0.7 K/mcL (0.6-4.6); Lymphocytes % 5.5 %; Mean Corpuscular HGB Conc 32.9 g/dL (31.6-35.5); Mean Corpuscular Hemoglobin 32.2 pg (28.0-33.3); Mean Corpuscular Volume 97.8 fL (83.0-100.0); Mean Platelet Volume 8.9 fL (9.4-12.4); Monocytes # 0.8 K/mcL (0.0-1.3); Monocytes % 6.4 %; Neutrophils # 11.1 K/mcL (1.6-8.9); Platelet Count 211 K/mcL (140-400); Red Blood Count 4.63 M/mcL (4.19-5.50); Red Cell Distribution Width 13.2 % (11.5-14.5); Segmented Neutrophils % 83.8 %
[2018-05-07 04:39] LABS: BUN/Creatinine Ratio 48 (6-26); Blood Urea Nitrogen 28 mg/dL (8-23); Calcium 9.1 mg/dL (8.6-10.3); Carbon Dioxide 34 mEq/L (23-29); Chloride 103 mEq/L (98-107); Glucose 156 mg/dL (70-105); Magnesium 2.4 mg/dL (1.6-2.6); Osmolality,Calculated 299 (280-300); Phosphorous 3.7 mg/dL (2.7-4.5); Potassium 4.9 mEq/L (3.5-5.1); Sodium 140 mEq/L (136-145); eGFR For Non-African Americans > 60 (> 60)
[2018-05-07] MEDS: *HR* Heparin 5,000 UNIT/ML VIAL SQ SCH ×3 (05:14→20:56)
[2018-05-07] MEDS: Famotidine 20 MG TABLET PO SCH ×2 (08:47→16:37)
[2018-05-07] MEDS: amLODIPine 5 MG TABLET PO SCH (08:47)
[2018-05-07] MEDS: diazePAM 5 MG TABLET PO PRN ×2 (08:48→16:53)
[2018-05-07] MEDS: Nicotine 21 MG PATCH.TD24 TD SCH (08:48)
[2018-05-07] MEDS: MethylPREDNISolone 40 MG/ML VIAL IVP SCH (08:55)
[2018-05-07] MEDS: Budesonide/Formoterol 160/4.5 1 PUFF INH IH SCH ×2 (10:49→21:55)
[2018-05-07] MEDS: Tiotropium 18 MCG inhalation IH SCH (10:49)
--- NOTE | 2018-05-07 14:25 | Internal Med Progress Note ---
Hospitalist Progress Note - Encounter Date of Encounter: 05/07/18 Time of Encounter: 09:15 - Subjective Interval History: improving on Valium, states it is really working for him, requests for prescription at discharge; continues to have some anxiety and panic attacks, shortness of breath, does not tolerate BiPAP due to anxiety; no chest pain, fever/chills; - Exam Vitals: Temp Pulse Resp BP Pulse Ox 97.6 F 76 18 164/80 94 05/07/18 11:23 05/07/18 11:23 05/07/18 11:23 05/07/18 11:23 05/07/18 11:23 Exam: General: Well-developed male sitting up in bed, minimal distress after speaking long sentences Skin: Warm and supple Chest: barrel chest; decreased air entry B/L, occasional expiratory wheezing+ Heart: Normal S1 & S2; rhythmic. No rubs or murmurs. Abdomen: Non-distended, soft and nontender Extremities: No clubbing, cyanosis or edema. No calf tenderness. Normal distal pulses. Neurological: Awake, alert and oriented to person, place and time. No focal deficits. Psych: seems anxious; - Assessment and Plan (1) Acute exacerbation of chronic obstructive airways disease Current Visit: Yes Status: Acute Assessment and Plan: Patient likely has advanced COPD, along with tobacco dependence, now in exacerbation. Pulmonology has been consulted, recommendations appreciated. Continue azithromycin, change steroids to PO Prednisone; start Mucinex; Continue bronchodilator nebulization, ICS, supplemental oxygen, wean down FiO2 as tolerated. 6-min walk test prior to discharge; (2) Anxiety Current Visit: Yes Status: Acute Assessment and Plan: patient has chronic anxiety and panic attacks, for which he has not sought medical attention, but has been smoking weed; developed adverse reaction to IV Ativan a few days ago, with significant confusion/agitation; Psychiatry consult much appreciated- continue PRN PO Valium (less potent and better tolerated than ATIVAN) along with scheduled Propranolol; (3) Hypertension Current Visit: Yes Status: Chronic (4) HLD (hyperlipidemia) Current Visit: Yes Status: Chronic (5) Current smoker Current Visit: Yes Status: Chronic (6) DVT prophylaxis Current Visit: Yes Status: Acute (7) Acute on chronic respiratory failure with hypoxia and hypercapnia Current Visit: Yes Status: Acute - Time Spent with Patient Total time spent is greater than 50% in coordination of care (as documented) at patient's floor/unit and/or counseling patient: Plan of Care Discussed with: patient Internal Medicine: Result - Labs CBC & Chem 7: 05/07/18 03:51 05/07/18 03:51 Labs: Short CBC 05/07/18 Range/Units 03:51 WBC 13.2 H (4.3-11.1) K/mcL Hgb 14.9 D (12.9-16.9) g/dL Hct 45.3 (37.5-50.1) % Plt Count 211 (140-400) K/mcL Neutrophils # 11.1 H (1.6-8.9) K/mcL BMP 05/07/18 03:51 Sodium 140 Potassium 4.9 Chloride 103 Carbon Dioxide 34 H BUN 28 H Creatinine 0.58 L Glucose 156 H Calcium 9.1 - ABG Interpretation ABG results: ABG ABG pH 7.38 pH Units (7.32-7.45) 05/04/18 11:12 ABG pCO2 71 mmHg (35-45) H* 05/04/18 11:12 ABG pO2 111 mmHg (85-104) H 05/04/18 11:12 ABG O2 Saturation 98 % (95-98) 05/04/18 11:12 - VTE Documentation of Mechanical Device: Graduated compression elastic hosiery Consult Discharge Plan - Plan Additional Instructions: 1. Continue propranolol 10 mg PO TID for anxiety. 2. Recommend diazepam 2.5 mg PO q6H prn of break thru anxiety Referrals: Kin Fontanez MD [Non-Partnered Physician] - (3) Hypertension Qualifiers: Hypertension type: essential hypertension Qualified Code(s): I10 - Essential (primary) hypertension (4) HLD (hyperlipidemia) Qualifiers: Hyperlipidemia type: unspecified Qualified Code(s): E78.5 - Hyperlipidemia, unspecified
[2018-05-07] MEDS: predniSONE 20 MG TABLET PO SCH (16:53)
[2018-05-08] MEDS: diazePAM 5 MG TABLET PO PRN ×2 (01:35→09:37)
[2018-05-08] MEDS: Levalbuterol Neb 1.25 MG/3 ML IH SCH ×2 (03:37→10:27)
[2018-05-08 04:28] LABS: BUN/Creatinine Ratio 53 (6-26); Blood Urea Nitrogen 32 mg/dL (8-23); Carbon Dioxide 34 mEq/L (23-29); Chloride 102 mEq/L (98-107); Glucose 149 mg/dL (70-105); Magnesium 2.4 mg/dL (1.6-2.6); Osmolality,Calculated 302 (280-300); Phosphorous 3.8 mg/dL (2.7-4.5); Potassium 4.6 mEq/L (3.5-5.1); Sodium 141 mEq/L (136-145); eGFR For Non-African Americans > 60 (> 60)
[2018-05-08 04:53] LABS: Basophils % 0.3 %; Eosinophils % 0.1 %; Hematocrit 44.8 % (37.5-50.1); Hemoglobin 15.3 g/dL (12.9-16.9); Immature Granulocytes % 2.6 % (0-4); Lymphocytes # 1.1 K/mcL (0.6-4.6); Lymphocytes % 8.4 %; Mean Corpuscular HGB Conc 34.2 g/dL (31.6-35.5); Mean Corpuscular Hemoglobin 32.9 pg (28.0-33.3); Mean Corpuscular Volume 96.3 fL (83.0-100.0); Mean Platelet Volume 10.1 fL (9.4-12.4); Monocytes # 0.9 K/mcL (0.0-1.3); Monocytes % 7.3 %; Neutrophils # 10.2 K/mcL (1.6-8.9); Platelet Count 203 K/mcL (140-400); Red Blood Count 4.65 M/mcL (4.19-5.50); Red Cell Distribution Width 13.1 % (11.5-14.5); Segmented Neutrophils % 81.3 %
[2018-05-08] MEDS: *HR* Heparin 5,000 UNIT/ML VIAL SQ SCH (05:24)
[2018-05-08] MEDS: Nicotine 21 MG PATCH.TD24 TD SCH (09:36)
[2018-05-08] MEDS: amLODIPine 5 MG TABLET PO SCH (09:37)
[2018-05-08] MEDS: predniSONE 20 MG TABLET PO SCH (09:38)
[2018-05-08] MEDS: Famotidine 20 MG TABLET PO SCH (09:38)
[2018-05-08 10:22] VITALS: BP 132/82
[2018-05-08] MEDS: Budesonide/Formoterol 160/4.5 1 PUFF INH IH SCH (10:27)
[2018-05-08] MEDS: Tiotropium 18 MCG inhalation IH SCH (10:27)
--- NOTE | 2018-05-08 11:33 | Discharge Summary ---
- NOTES TO OUTPATIENT PROVIDER Notes to Outpatient Provider: Acute COPD with advanced disease; anxiety and panic attacks, started on Propranolol and PRN Valium; to f/up with Psychiatry; Orders not resulted at time of discharge: Pending orders 05/09/18 04:00 Basic Metabolic Panel AM 0400 CBC [Complete Blood Count] [HEME] AM 0400 Magnesium AM 0400 Phosphorous AM 0400 Date of Encounter: 05/08/18 Time of Encounter: 10:05 - Discharge Diagnosis (1) Acute exacerbation of chronic obstructive airways disease Priority: Primary Status: Acute (2) Anxiety Priority: Primary Status: Chronic (3) Hypertension Priority: Secondary Status: Chronic Qualifiers: Hypertension type: essential hypertension Qualified Code(s): I10 - Essential (primary) hypertension (4) HLD (hyperlipidemia) Priority: Secondary Status: Chronic Qualifiers: Hyperlipidemia type: unspecified Qualified Code(s): E78.5 - Hyperlipidemia , unspecified (5) Current smoker Priority: Primary Status: Chronic (6) Acute on chronic respiratory failure with hypoxia and hypercapnia Priority: Primary Status: Acute Hospital course: Mr. Reddy is a 63 year old male with history of COPD and tobacco abuse, who was transferred from [facility] inpatient unit, For evaluation of acute COPD. Patient was admitted there due to COPD, has not shown improvement. He was noted to have advanced COPD due to chronic heavy tobacco use, started on IV steroids, scheduled bronchodilators, supplemental oxygen, inhaled corticosteroids and intermittent BiPAP support. Pulmonology was consulted, changed LAMA to Spiriva from [facility], and agreed with remaining management; he needs to f/up with Pulmonology as outpatient. His respiratory status and hospital course was complicated by severe underlying anxiety and panic attacks. He received a small dose of IV Ativan to which he had an adverse reaction with severe confusion and agitation. He was started on scheduled propranolol and when necessary hydroxyzine with no significant improvement in anxiety. Psychiatry was consulted and he was started on a low- dose of when necessary PO Valium, that he tolerated well and improved slowly. Patient was counseled multiple times and without smoking cessation and decreasing marijuana use, he verbalized understanding and is being discharged with prescriptions for nicotine transdermal patch. Discharge discussed with: patient, nurse Time spent discussing smoking cessation with patient: 3 to 10 minutes - Time Spent with Patient Total time spent providing and/or coordinating discharge services: Greater than 30 minutes (50 min) - Discharge Medications Prescriptions: amLODIPine [Norvasc] 10 mg PO DAILY #30 tablet diazePAM [Valium] 2.5 mg PO Q8H PRN 14 Days #15 tablet PRN Reason: Anxiety GuaiFENesin ER [Mucinex] 600 mg PO BID #20 tbbp.12hr Nicotine Patch [Nicoderm] 21 mg TD DAILY #30 patch.[id number] predniSONE [PredniSONE] 60 mg PO DAILY 16 Days #26 tablet Propranolol [Inderal] 10 mg PO TID #90 tablet Tiotropium [Spiriva] 18 mcg IH DAILYR #30 inh Home Medications: Albuterol Sulfate [Proair Hfa] 8.5 aerosol IH Q6H PRN 01/03/16 [History] Quetiapine Fumarate [Seroquel] 50 mg PO HS 01/03/16 [History] Simvastatin 20 mg PO HS 01/04/16 [History] Budesonide/Formoterol 80/4.5 [Symbicort 80/4.5] 1 puff IH BID #1 inhaler [Rx] GuaiFENesin ER [Mucinex] 600 mg PO BID #20 tbbp.12hr 05/08/18 [Rx] Nicotine Patch [Nicoderm] 21 mg TD DAILY #30 patch.[id number] 05/08/18 [Rx] Propranolol [Inderal] 10 mg PO TID #90 tablet 05/08/18 [Rx] Tiotropium [Spiriva] 18 mcg IH DAILYR #30 inh 05/08/18 [Rx] amLODIPine [Norvasc] 10 mg PO DAILY #30 tablet 05/08/18 [Rx] diazePAM [Valium] 2.5 mg PO Q8H PRN 14 Days #15 tablet 05/08/18 [Rx] predniSONE [PredniSONE] 60 mg PO DAILY 16 Days #26 tablet 05/08/18 [Rx] Allergies/Adverse Reactions: 3 Allergy/AdvReac Type Severity Reaction Status Date / Time lorazepam [From Ativan] AdvReac Confusion Verified 05/04/18 02:09 Date of admission: 05/03/18 13:22 Primary care physician: Lenard Casillas Consults: 05/04/18 10:33 Consult to Pulmonology [CONS] Routine Consulting Provider: [facility]igh Reason for Consult: Advanced COPD with exacerbation, active smoker; Call Completed: Yes 05/06/18 09:56 Consult to Psychiatry [CONS] Routine Consulting Provider: Psychiatry Katerin Reason consult: Agitation Other reason and/or additional details: Severe COPD patient with extreme anxiety and panic attacks, continues to have shortness of breath due to anxiety, intolerance to Ativan Time Notified: 09:57 Call Completed: Yes 05/06/18 10:11 Consult to [facility]er [CONS] Routine Reason for SW Consult: Pt requesting home health Discharging clinician: Carmen Gonsales Anticipated date of discharge: 05/08/18 - Constitutional Vitals: Temp Pulse Resp BP Pulse Ox 97.8 F 93 18 132/82 94 05/08/18 06:54 05/08/18 10:21 05/08/18 10:27 05/08/18 10:21 05/08/18 10:27 General appearance: Present: A&O X 3, answers questions appropriately Exam: . - Respiratory Respiratory exam: Present: decreased breath sounds (B/L decreased air entry), CTAB, wheezes (B/L wheezing improving, posterior lung faye). Absent: accessory muscle use, rales, rhonchi - Patient Status Disposition: Home, Self-Care Condition: Fair Functional capacity at discharge: independent ambulation Overall status at discharge: patient is progressing back to baseline - Discharge Instructions Instructions: Propranolol (By mouth), Decongestant/Expectorant (By mouth), Diazepam (By mouth), Prednisone (By mouth), Nicotine (Absorbed through the skin) , Amlodipine (By mouth), Tiotropium (By breathing), Acute Respiratory Distress Syndrome (DC), Chronic Obstructive Pulmonary Disease (DC) Follow Up With: Kin Fontanez MD [Non-Partnered Physician] - (Call Thursday to schedule appointment within 1-2 weeks.) Additional Instructions: 1. Continue propranolol 10 mg PO TID for anxiety. 2. Recommend diazepam 2.5 mg PO q6H prn of break thru anxiety F/up with PCP in 1-2 weeks F/up with Psychiatry in 1-2 weeks - Diet and Activity Activity: resume usual activities as tolerated, wear oxygen at all times Diet: low fat, low cholesterol, low salt diet, other (smoking cessation) - VTE Documentation of Mechanical Device: Graduated compression elastic hosiery
== END 2018-05-08 13:35 | disposition home or self-care (01) | DRG 140 ==
LOC: INTOOBSV 19:37 → 2NENU 19:37 → SUATTDRO 05-03 13:22
PROVIDERS: ADMIT Student in an Organized Health Care Education/Training Program; ATTEND Internal Medicine

== ENCOUNTER 2018-07-15 23:58 | Observation (INO) ==
[2018-07-16] MEDS ORDERED: Isovue-370 500 ML INFUS..BTL IV ONE (00:10)
--- NOTE | 2018-07-16 00:22 | Emergency Department Note ---
Disposition Clinical Impression: COPD exacerbation Pneumonia Qualifiers: Pneumonia type: due to unspecified organism Laterality: left Lung location: lower lobe of lung Qualified Code(s): J18.1 - Lobar pneumonia, unspecified organism Disposition: Admitted As Inpatient Condition: Fair Forms: ED Satisfaction Letter General Adult HPI - General Chief complaint: ED Shortness of Breath/Dyspnea Stated complaint: sob Time Seen by Provider: 07/16/18 00:09 Source: patient Limitations: no limitations Nursing Notes Reviewed: Yes Vital Signs Reviewed: Yes - History of Present Illness HPI Narrative: No patient being sent from [facility] for an elevated troponin and their CT scanner is down currently. They are requesting a CTA of the patient's chest due to the elevated d-dimer. Patient presented there with a two-day history of increased shortness of breath with a productive cough. Has a history of COPD. Is using 2 L of oxygen at home. Woke up this morning checked his pulse ox and he was around 8788%. This was on his oxygen. His home health nurse sent to the emergency department. Pain Scale: 0 - Related Data Home Medications Medication Instructions Recorded Confirmed Quetiapine Fumarate [Seroquel] 50 mg PO HS 01/03/16 05/04/18 Simvastatin 20 mg PO HS 01/04/16 05/04/18 Incruse Ellipta 07/15/18 Ipratropium/Albuterol Neb 07/15/18 Spiriva 07/15/18 Symbicort 80/4.5 07/15/18 Ventolin Hfa 07/15/18 Previous Rx's Medication Instructions Recorded Propranolol [Inderal] 10 mg PO TID #90 tablet 05/08/18 amLODIPine [Norvasc] 10 mg PO DAILY #30 tablet 05/08/18 Allergies Allergy/AdvReac Type Severity Reaction Status Date / Time lorazepam [From Ativan] AdvReac Confusion Verified 05/04/18 02:09 All systems ED: reviewed and negative except as stated. Review of Systems: As Per HPI Constitutional: Denies: fever, chills ENT ED: Denies: congestion Cardiovascular: Denies: chest pain, syncope Respiratory: Reports: cough, dyspnea, sputum production Gastrointestinal: Denies: abdominal pain, nausea, vomiting, diarrhea Past Medical History - Past Medical History Attestation: Yes The following information was validated with the patient. Source: patient Medical history: Reports: COPD, hyperlipidemia, hypertension Psychiatric history: Reports: anxiety - Social History Smoking Status: Former smoker Smokeless Tobacco Status: No Alcohol use: Reports: none Drug use: Reports: none, marijuana Physical Exam - General Limitations: no limitations General appearance: alert, other (Conversationally dyspneic) - Head Head exam: atraumatic, normocephalic, normal inspection - Eye Eye exam: Present: normal appearance, PERRL, EOMI - ENT ENT exam: normal exam, normal oropharynx, mucous membranes moist - Neck Neck exam: Present: normal inspection, full ROM, trachea midline - Chest Chest inspection: Present: normal inspection, symmetric chest wall rise - Respiratory Respiratory exam: Present: normal lung sounds bilaterally, respiratory distress. Absent: accessory muscle use - Cardiovascular Cardiovascular exam: Present: regular rate, normal rhythm, normal heart sounds - Abdominal Exam Abdominal exam: Present: soft, Non-Tender. Absent: tenderness, distention, guarding, rebound, rigidity, organomegaly - Extremities Exam Extremities exam: Present: normal inspection, full ROM, normal capillary refill. Absent: tenderness, pedal edema - Back Exam Back exam: Present: normal inspection, full ROM. Absent: tenderness - Neurological Exam Neurological exam: Present: alert, oriented X3 - Psychiatric Psychiatric exam: Present: normal affect, normal mood - Skin Skin exam: Present: warm, dry, intact, normal color Course Course Narrative: Patient was seen at outside facility had an elevated d-dimer at 1103. Also had lab work done with a white count of 18.5 hemoglobin of 13.5 with a hematocrit of 40.2 platelets noted at 286. Has a normal creatinine at 0.81 with GFR of 96. No other gross abnormalities on his CMP. He was given Lovenox as well as aspirin duo nebs and 125 mg of Solu-Medrol. A portable chest was completed as well which was reported as a COPD and interstitial change. Patient had an EKG performed at the outside facility which showed sinus tachycardia at a rate of 104. DE interval was 147. Respirations was 92. QT was 328. QTC was 389. There are no signs of acute ischemia. No signs of WPW or Brugada syndrome. Does have enlarged P waves. Patient reportedly had wheezing on initial evaluation which responded well to DuoNeb's as well as steroids. On patient arrival here lung sounds are clear. His oxygen saturation is around 93% on 2 L via nasal cannula which is what he wears at home. Patient does appear conversationally dyspneic. We will provide patient with a DuoNeb and an additional dose of prednisone while here. He did receive the Solu-Medrol around 2:30 PM. His last DuoNeb was at 1700. - Reevaluation(s) Reevaluation #1: Pt with COPD exacerbation and increased oxygen demand. He maintains an oxygen saturation in the mid 90's while quiet. However his oxygen satuation does decrease with conversation. We will admit to the hospital. Time: 01:57 Reevaluation #2: Patient does have a history of a left perihilar opacity. We will treat patient for a community-acquired pneumonia. Time: 02:29 - Consultations Consultation #1: Dr berman accepted Pt in stable condition. We will call if there are concerns for PE on the CTA. Time: 01:56 Vital Signs Temperature 98.1 F 07/16/18 00:06 Pulse Rate 99 07/16/18 00:06 Respiratory Rate 20 07/16/18 00:06 Blood Pressure 146/75 07/16/18 00:06 O2 Sat by Pulse Oximetry 96 07/16/18 00:06 Temperature 98.1 F 07/16/18 00:06 Pulse Rate 99 07/16/18 00:06 Respiratory Rate 17 07/16/18 01:08 Blood Pressure 146/75 07/16/18 00:06 O2 Sat by Pulse Oximetry 93 07/16/18 01:08 Oxygen Delivery Oxygen Delivery Nasal Cannula Medical Decision Making - Medical Records Medical records reviewed: Yes I reviewed the patient's medical records. - Lab Data Lab results reviewed: Yes I reviewed the patient's lab results.
[2018-07-16] MEDS ORDERED: predniSONE 20 MG TABLET PO ONE (00:23)
[2018-07-16] MEDS ORDERED: Ipratropium/Albuterol Neb 3 ML IH ONE ×2 (00:23→01:04)
--- NOTE | 2018-07-16 00:33 | Emergency Department Note ---
Disposition Clinical Impression: COPD exacerbation, Pneumonia Disposition: Admitted As Inpatient Condition: Fair General Adult HPI - General Chief complaint: ED Shortness of Breath/Dyspnea Stated complaint: sob Time Seen by Provider: 07/16/18 00:09 Source: patient Limitations: no limitations - History of Present Illness Pain Scale: 0 - Related Data Home Medications Medication Instructions Recorded Confirmed RX: Quetiapine Fumarate [Seroquel] 50 mg PO HS 01/03/16 05/04/18 RX: Simvastatin 20 mg PO HS 01/04/16 05/04/18 Incruse Ellipta 07/15/18 Ipratropium/Albuterol Neb 07/15/18 Spiriva 07/15/18 Symbicort 80/4.5 07/15/18 Ventolin Hfa 07/15/18 Previous Rx's Medication Instructions Recorded RX: Propranolol [Inderal] 10 mg PO TID #90 tablet 05/08/18 RX: amLODIPine [Norvasc] 10 mg PO DAILY #30 tablet 05/08/18 Allergies Allergy/AdvReac Type Severity Reaction Status Date / Time lorazepam [From Ativan] AdvReac Confusion Verified 05/04/18 02:09 Past Medical History - Past Medical History Medical history: Reports: COPD, hyperlipidemia, hypertension Psychiatric history: Reports: anxiety - Social History Smoking Status: Former smoker Smokeless Tobacco Status: No Alcohol use: Reports: none Drug use: Reports: none, marijuana Physical Exam - General Limitations: no limitations General appearance: alert, in no apparent distress Course Vital Signs Temperature 98.1 F 07/16/18 00:06 Pulse Rate 99 07/16/18 00:06 Respiratory Rate 20 07/16/18 00:06 Blood Pressure 146/75 07/16/18 00:06 O2 Sat by Pulse Oximetry 96 07/16/18 00:06 Temperature 97.9 F 07/16/18 03:43 Pulse Rate 113 07/16/18 03:43 Respiratory Rate 24 07/16/18 03:43 Blood Pressure 144/86 07/16/18 03:43 O2 Sat by Pulse Oximetry 95 07/16/18 03:43 Oxygen Delivery Oxygen Delivery Nasal Cannula Attestation Statement - Attestation Attestation: Resident Attestation: I examined this patient and my medical decision making was reviewed with the Resident Physician. I agree with the documented findings, disposition and treatment plan as described except to the extent set forth below. We independently had [id number] contact with the patient. Patient seen with Dr. Marie. Please see her note for further details and disposition. Patient with a history of oxygen dependent COPD presenting from [place] for evaluation of possible PE. Patient did receive treatment and initial workup. Please see resident note for further details of lab work. The patient was given multiple breathing treatments the last breathing treatment proximal he 6 hours prior to arrival. Patient received steroids proximally 10 hours prior to arrival. He also received Lovenox at the outside hospital. D- dimer was elevated greater than 1000. Upon evaluation the patient has decreased breath sounds without significant wheezing. Patient will undergo further evaluation with CT of the chest and likely admission for dyspnea.
[2018-07-16] MEDS ORDERED: Azithromycin 250 MG TABLET PO ONE (02:27)
--- NOTE | 2018-07-16 02:40 | Internal Med History&Physical ---
<Brittany Grullon N - Last Filed: 07/16/18 04:50> Date of Encounter: 07/16/18 Time of Encounter: 02:40 Internal Medicine - H&P: HPI Chief complaint: Worsening dyspnea Admitted From: Hospital to Hospital Transfer History of present illness: Mr. Reddy is a 63 year old male with a history of COPD, hypertension, and hyperlipidemia. He arrived at [facility] as a transfer from an outside facility, where he presented with worsening shortness of breath since Thursday. Patient reported that he noted his oxygen saturation to be in the 80s while at home on Thursday, and states that his oxygen saturation was slow to improve even with rest. Patient denies any fevers or chills, chest pain, increased cough, abdominal pain, nausea, vomiting, or changes in bowel habit. He does report some sputum production and recent lower extremity swelling that also developed over the last several days. He states that his shortness of breath is worsened by exertion or conversation, but it does improve subjectively with rest and with breathing treatments. He denied any other recent changes or symptoms. Laboratory studies performed at the outside facility were significant for an elevated d-dimer and an elevated white blood cell count. Patient was transferred to obtain CTA of the chest to rule out acute pulmonary embolism. Initial vital signs obtained at this facility were as follows: Temperature 98.1, HR 99, RR 20, blood pressure 146/75, pulse oximetry 96% on 3 L via nasal cannula. CTA of the chest demonstrated no scan evidence for pulmonary embolus, but did note a left perihilar opacity that is likely due to infectious or inflammatory source. Patient was admitted to the hospitalist service for management of suspected community acquired pneumonia. Patient was seen and evaluated at the bedside soon after arrival to the floor. He denied any acute complaints or concerns, though he did not appear dyspneic while speaking. He denied any increased work of breathing, reporting that he just feels short of breath more quickly than normal. Past Med Surg Social Fam HX - Past Medical History Medical history: COPD, hyperlipidemia, hypertension Additional medical history: Chronic Bronchitis, Psychiatric history: anxiety - Past Surgical History Additional surgical history: right ankle surgery - Social History Smoking Status: Former smoker Smokeless Tobacco Status: No Alcohol use: none Drug use: none, marijuana - Family History Father Living Status: Hx Family Cancer: Yes (colon) Mother Living Status: Hx Family Cardiac Disorders: No Hx Family Respiratory Disorders: Yes Hx Family Cancer: Yes (Uterine/ skin cancer) Hx Family GI Disorders: No Hx Family Endocrine Disorder: No Hx Family Neuromuscular Disorders: No Hx Family Neurologic Disorders: No Hx Family HEENT Disorders: No Hx Family Autoimmune Disorders: No Internal Medicine - H&P: Meds Quetiapine Fumarate [Seroquel] 50 mg PO HS 01/03/16 [History] Simvastatin 20 mg PO HS 01/04/16 [History] Propranolol [Inderal] 10 mg PO TID #90 tablet 05/08/18 [Rx] amLODIPine [Norvasc] 10 mg PO DAILY #30 tablet 05/08/18 [Rx] Incruse Ellipta 07/15/18 [History] Ipratropium/Albuterol Neb 07/15/18 [History] Spiriva 07/15/18 [History] Symbicort 80/4.5 07/15/18 [History] Ventolin Hfa 07/15/18 [History] Allergy/AdvReac Type Severity Reaction Status Date / Time lorazepam [From Ativan] AdvReac Confusion Verified 05/04/18 02:09 All Systems PM: A 10-system review of systems was performed and is negative for pertinent findings except as documented above in the HPI. - Constitutional Vitals: Temp Pulse Resp BP Pulse Ox 98.1 F 99 17 146/75 93 07/16/18 00:06 07/16/18 00:06 07/16/18 01:08 07/16/18 00:06 07/16/18 01:08 Exam: GENERAL: Well-developed, well-nourished adult male in no acute distress. HEENT: Atraumatic and normocephalic. CARDIOVASCULAR: Regular rate and rhythm. S1 and S2 present. No murmurs, gallops, or rubs appreciated. RESPIRATORY: Diffusely decreased breath sounds bilaterally. Mild expiratory wheeze present at the apex of the left lung. Patient does have coarse respiratory sounds. Patient does not demonstrate accessory muscle use with respiration. GASTROINTESTINAL: Soft, nontender, nondistended. EXTREMITIES: Mild bilateral lower extremity edema present. SKIN: Warm, dry, and intact. NEUROLOGIC: Patient is cooperative with exam and answers questions appropriately. No apparent focal deficits. PSYCHIATRIC: Mood and affect appear appropriate. Internal Med - H&P Results - Impressions ITS Impressions Chest CTA 07/16/18 00:10 IMPRESSION: 1. No scan evidence for pulmonary embolus. 2. Left perihilar opacity is likely infectious or inflammatory. D/ / Matheus Mccormick MD / Matheus Mccormick MD Interpreting Provider: Matheus Mccormick MD - Assessment and plan (1) COPD exacerbation Current Visit: Yes Status: Acute Assessment and plan: Suspect acute COPD exacerbation due to worsening shortness of breath with exertion and presence of expiratory wheezes on exam. Patient does report improvement in symptoms with breathing treatments. - Resume prednisone 40mg PO daily x4 days on 07/17/2018 - Duonebs and albuterol as above (2) Hypertension Current Visit: No Status: Chronic Assessment and plan: - Continue home medication of propranolol Qualifiers: Hypertension type: essential hypertension Qualified Code(s): I10 - Essential (primary) hypertension (3) DVT prophylaxis Current Visit: No Status: Acute Assessment and plan: - Heparin 5000units SQ Q8H (4) Pneumonia Current Visit: Yes Status: Acute Assessment and plan: Concern for acute pneumonia due to perihilar opacity demonstrated on CTA and elevated WBC count on outside laboratory studies. Suspect community-acquired etiology. - Repeat laboratory studies - Resume azithromycin 500mg PO x2 days on 07/17/2018 - Add ceftriaxone 1000mg daily - Duonebs Q4H scheduled - Albuterol nebulizer Q2H PRN - Maintenance fluid hydration with 0.9% NaCl @ 125mL/hr Qualifiers: Pneumonia type: due to unspecified organism Laterality: left Lung location: lower lobe of lung Qualified Code(s): J18.1 - Lobar pneumonia, unspecified organism - Time Spent With Patient Total time spent is greater than 50% in coordination of care (as documented) at patient's floor/unit and/or counseling patient: <Iván Chen - Last Filed: 07/16/18 06:01> Date of Encounter: 07/16/18 Time of Encounter: 05:35 - Constitutional Constitutional: fever(s) (subjective), no chills, no night sweats - EENT Eyes: no blurry vision, no change in vision Ears: no ear pain, no tinnitus Nose, mouth and throat: nasal congestion, no sinus pressure, no sore throat - Cardiovascular Cardiovascular ROS IM: dyspnea on exertion, no chest pain, no dyspnea, no orthopnea, no paroxysmal nocturnal dyspnea - Respiratory Respiratory: cough, dyspnea on exertion, chest congestion, no excessive phlegm production, no change in phlegm color, no pain with cough - Gastrointestinal Gastrointestinal: no abdominal pain, no diarrhea, no hematemesis, no hematochezia, no melena, no nausea, no vomiting - Genitourinary Genitourinary ROS male: no dysuria, no flank pain, no hematuria - Musculoskeletal Musculoskeletal ROS IM: no arthralgias, no back pain - Integumentary Integumentary IM: no rash, no jaundice - Neurological Neurological ROS: no dizziness, no focal weakness, no frequent falls, no headache(s) - Psychiatric Psychiatric: no anxiety, no depression - Endocrine Endocrine IM: no polydipsia - Allergic/Immunologic Allergic/Immunologic: wheezing, no GI upset with certain foods - Constitutional Vitals: Temp Pulse Resp BP Pulse Ox 97.9 F 113 24 144/86 95 07/16/18 03:43 07/16/18 03:43 07/16/18 03:43 07/16/18 03:43 07/16/18 05:19 General appearance: Present: cooperative, A&O X 3, pleasant, no acute distress, answers questions appropriately - Head Head exam: Present: atraumatic, normal inspection - Eye Eye exam: Present: EOMI, PERRL. Absent: scleral icterus Pupils: Present: normal accommodation - ENT ENT exam: Present: mucous membranes dry, normal exam, normal oropharynx - Neck Neck exam general surgery: Present: full ROM, supple. Absent: tenderness, nuchal rigidity, thyromegaly - Respiratory Respiratory exam: Present: accessory muscle use (mild), prolonged expiratory phase, respiratory distress (mild), rhonchi, wheezes (faint scattered wheezes), tachypnea. Absent: chest wall tenderness, rales - Cardiovascular Cardiovascular exam: Present: distant heart sounds, RRR, +S1, +S2. Absent: diastolic murmur, systolic murmur - GI/Abdominal GI/Abdominal exam: Present: normal bowel sounds, soft. Absent: guarding, hepatomegaly, mass, rebound, splenomegaly, tenderness - Extremities Exam Extremities exam: Present: full ROM, warm, radial pulses palpable and symmetrical. Absent: calf tenderness, pedal edema, tenderness - Back Exam Back exam: Absent: CVA tenderness (L), CVA tenderness (R) - Neurological Exam Neurological exam: Present: alert, CN II-XII intact, oriented X3, no focal deficits - Skin Skin exam: Present: dry, intact, warm Internal Med - H&P Results - EKG Data -: EKG Interpreted by Myself - EKG Data Prior EKG available for review: no EKG comments: 07/16/18 05:49 Sinus rhythm; no acute ST-T changes - Impressions ITS Impressions Chest CTA 07/16/18 00:10 IMPRESSION: 1. No scan evidence for pulmonary embolus. 2. Left perihilar opacity is likely infectious or inflammatory. D/ / Matheus Mccormick MD / Matheus Mccormick MD Interpreting Provider: Matheus Mccormick MD - Diagnostic Studies CT scan - chest Status: image reviewed by me (L perihiar opacity) - Assessment and plan (1) COPD exacerbation Current Visit: Yes Status: Acute (2) Hypertension Current Visit: No Status: Chronic Qualifiers: Hypertension type: essential hypertension Qualified Code(s): I10 - Essential (primary) hypertension (3) DVT prophylaxis Current Visit: No Status: Acute (4) Pneumonia Current Visit: Yes Status: Acute Qualifiers: Pneumonia type: due to unspecified organism Laterality: left Lung location: lower lobe of lung Qualified Code(s): J18.1 - Lobar pneumonia, unspecified organism - Time Spent With Patient Total time spent is greater than 50% in coordination of care (as documented) at patient's floor/unit and/or counseling patient: - Attending Attestation I discussed the patient CHILKOOT, past medical history, review of systems, lab data, imaging findings, and exam findings with Dr. Grullon. I then saw and examined patient independently. Patient states he feels much better than his initial presentation to the ER. He denies any chest pain whatsoever. He is complaining mostly of just increasing shortness of breath, cough, and wheeze. He was hospitalized about a month ago with COPD exacerbation. He wears chronic home oxygen at home. He is on oxygen but at a lower setting than his home setting. He denies any dyspnea now. He denies any chest pain. He has minimal wheezing. He does admit to having had subjective fevers but no chills or night sweats. He feels as though this is a typical COPD flareup for him. Unfortunately, patient had 2 ER visits for an elevated d-dimer which was likely not of any value. This prompted CT angiogram of the chest and subsequent finding of left perihilar infiltrate. I reviewed the CT images and Im not truly convinced he has a pneumonia. Nonetheless, we will treat him with antibiotics, steroids, and aerosols as have been already prescribed by Dr. Grullon. Given his abrupt response and improvement in symptoms, I anticipate he will likely be discharged within the next 24-48 hours. Other than my comments above and noted exam findings, I agree with Dr. Grullon's assessment and plan.
[2018-07-16] MEDS ORDERED: Naloxone 0.4 MG/ML INJ IVP PRN (04:06)
[2018-07-16] MEDS ORDERED: Albuterol 2.5 MG/3 ML NEBULIZER IH PRN (05:05)
[2018-07-16] MEDS: 0.9 % Sodium Chloride 1,000 ML IVC SCH ×3 (05:41→22:10)
[2018-07-16] MEDS: *HR* Heparin 5,000 UNIT/ML VIAL SQ SCH ×3 (05:41→22:10)
[2018-07-16] MEDS: Ipratropium/Albuterol Neb 3 ML IH SCH ×5 (07:28→23:51)
[2018-07-16] MEDS: amLODIPine 5 MG TABLET PO SCH (08:55)
[2018-07-16] MEDS: cefTRIAXone 1,000 MG in Water for inj. (sterile) 20 ML 10 ML IVP SCH (08:56)
--- NOTE | 2018-07-16 10:30 | Internal Med Progress Note ---
Hospitalist Progress Note - Encounter Date of Encounter: 07/16/18 Time of Encounter: 10:15 - Subjective Interval History: Pt was seen and assessed at 1015. He states that he has been having difficutly breathing for 2 days with increased use of inhalers at home, no increased 02 demand. Reports dry cough, not much worse than baseline. Denies fever or chills, no nausea or vomiting. Pt is aware that he will likely be here for at least another day, questions answered. - Exam Vitals: Temp Pulse Resp BP Pulse Ox 98.0 F 82 21 118/74 94 07/16/18 10:19 07/16/18 10:19 07/16/18 10:19 07/16/18 10:19 07/16/18 10:19 Exam: General: Pt resting quietly on bed, no distress. Skin: pwd, no rashes, lesions, redness Neurological: Pt is alert and awake, oriented x 3, Speech is clear, PERRLA, EOMI, no nystagmus, no pronator drift. strength equal x 4 extremities HEENT: mucous mumbranes moist, no conjuctival pallor Neck: supple, no tracheal deviation, no lymphadenopathy, tenderness, no thyromegaly Heart: S1S2 heard without gallops, clicks, murmurs, no bradycardia or tachycardia, pt has no peripheral edema, pedal and radial pulses palpable bilaterally. Lungs: clear throughout without wheezing, rales, or ronchi, respirations are unlabored Abdomen: soft and non tender with bowel sound present, no hepatomegaly. Psych: Normal affect with good eye contact - Assessment and Plan (1) COPD exacerbation Current Visit: Yes Status: Acute Assessment and Plan: Suspect acute COPD exacerbation due to worsening shortness of breath and presence of expiratory wheezes on exam. Patient does report improvement in symptoms with breathing treatments and states that he has not had Duonebs prescribed to him since 2014. He could benefit from prescription at discharge. Pt is currently at baseline 02 demand of 2 liters - Resume prednisone 40mg PO daily x4 days on 07/17/2018 - Duonebs and albuterol as above - Continue antibiotics as above. - 02 prn to maintain sats > 92% (2) Hypertension Current Visit: Yes Status: Chronic Assessment and Plan: Well controlled. Continue home medications. (3) DVT prophylaxis Current Visit: Yes Status: Acute Assessment and Plan: -Heparin SQ TID (4) Pneumonia Current Visit: Yes Status: Acute Assessment and Plan: Suspect community acquired pneumonia. Chest CTA shows left perihilar opacity, will treat for pneumonia Continue IV Rocephin as well as po Zithromax x 2 days starting today Duonebs q4h 02 prn to maintains 02 sats > 92% Albuterol nebulizer q2hprn Monitor labs and vitals Chest CTA 07/16/18 00:10 IMPRESSION: 1. No scan evidence for pulmonary embolus. 2. Left perihilar opacity is likely infectious or inflammatory. D/ / Matheus Mccormick MD / Matheus Mccormick MD Interpreting Provider: Matheus Mccormick MD Prophylaxis: Heparin sQ - Time Spent with Patient Total time spent is greater than 50% in coordination of care (as documented) at patient's floor/unit and/or counseling patient: less than 15 minutes Plan of Care Discussed with: patient Internal Medicine: Result - Impressions Impressions Chest CTA 07/16/18 00:10 IMPRESSION: 1. No scan evidence for pulmonary embolus. 2. Left perihilar opacity is likely infectious or inflammatory. D/ / Matheus Mccormick MD / Matheus Mccormick MD Interpreting Provider: Matheus Mccormick MD Consult Discharge Plan - Plan Referrals: Cam Parekh MD [Primary Care Provider] - (2) Hypertension Qualifiers: Hypertension type: essential hypertension Qualified Code(s): I10 - Essential (primary) hypertension (4) Pneumonia Qualifiers: Pneumonia type: due to unspecified organism Laterality: left Lung location: lower lobe of lung Qualified Code(s): J18.1 - Lobar pneumonia, unspecified organism
[2018-07-17] MEDS: Ipratropium/Albuterol Neb 3 ML IH SCH ×6 (03:53→23:10)
[2018-07-17 04:15] LABS: Basophils % 0.1 %; Eosinophils % 0.1 %; Hematocrit 34.6 % (37.5-50.1); Hemoglobin 11.4 g/dL (12.9-16.9); Lymphocytes # 1.4 K/mcL (0.6-4.6); Lymphocytes % 10.6 %; Mean Corpuscular HGB Conc 32.9 g/dL (31.6-35.5); Mean Corpuscular Hemoglobin 31.1 pg (28.0-33.3); Mean Corpuscular Volume 94.3 fL (83.0-100.0); Mean Platelet Volume 8.7 fL (9.4-12.4); Monocytes % 7.9 %; Neutrophils # 10.5 K/mcL (1.6-8.9); Platelet Count 227 K/mcL (140-400); Red Blood Count 3.67 M/mcL (4.19-5.50); Red Cell Distribution Width 14.1 % (11.5-14.5); Segmented Neutrophils % 80.3 %
[2018-07-17 04:37] LABS: Alanine Aminotransferase 12 Units/L (7-52); Albumin 3.6 g/dL (3.5-5.7); Albumin/Globulin Ratio 1.6 (1.1-2.2); Alkaline Phosphatase 65 Units/L (34-104); Aspartate Amino Transferase 13 Units/L (13-39); BUN/Creatinine Ratio 31 (6-26); Bilirubin,Total 0.6 mg/dL (0.3-1.0); Blood Urea Nitrogen 20 mg/dL (8-23); Calcium 8.7 mg/dL (8.6-10.3); Carbon Dioxide 22 mEq/L (23-29); Chloride 110 mEq/L (98-107); Globulin 2.3 g/dL (2.4-3.5); Glucose 121 mg/dL (70-105); Osmolality,Calculated 294 (280-300); Sodium 140 mEq/L (136-145); Total Protein 5.9 g/dL (6.4-8.9); eGFR For Non-African Americans > 60 (> 60)
[2018-07-17] MEDS: *HR* Heparin 5,000 UNIT/ML VIAL SQ SCH ×2 (05:39→14:20)
[2018-07-17] MEDS ORDERED: Azithromycin 250 MG TABLET PO SCH (09:00)
[2018-07-17] MEDS: amLODIPine 5 MG TABLET PO SCH (09:56)
[2018-07-17] MEDS: predniSONE 20 MG TABLET PO SCH (09:56)
[2018-07-17] MEDS: cefTRIAXone 1,000 MG in Water for inj. (sterile) 20 ML 10 ML IVP SCH (09:57)
--- NOTE | 2018-07-17 15:27 | Internal Med Progress Note ---
Hospitalist Progress Note - Encounter Date of Encounter: 07/17/18 Time of Encounter: 15:25 - Exam Vitals: Temp Pulse Resp BP Pulse Ox 97.5 F L 84 20 121/80 94 07/17/18 06:40 07/17/18 06:40 07/17/18 11:52 07/17/18 06:40 07/17/18 11:52 Exam: General appearance: Present: A&O X 3, pleasant, no acute distress - Head Head exam: Present: atraumatic, normocephalic - Eye Eye exam: Present: PERRL, conjuntiva pink, sclera anicteric Pupils: Present: PERRL - Neck Neck exam general surgery: Present: supple, trachea midline. Absent: lymphadenopathy - Respiratory Respiratory exam: Lung sounds tight and congested with diffuse rhonchi and wheezing - Cardiovascular Cardiovascular exam: Present: RRR, +S1, +S2. Absent: diastolic murmur, gallop, rubs, systolic murmur - GI/Abdominal GI/Abdominal exam: Present: normal bowel sounds, soft, no peritoneal signs. Absent: distended, tenderness - Extremities Exam Extremities exam: Present: warm, radial pulses palpable and symmetrical. Absent: calf tenderness, cyanotic, pedal edema - Neurological Exam Neurological exam: Present: CN II-XII intact, oriented X3, no focal deficits. Absent: pronater drift, facial droop, speech deficit - Skin Skin exam: Present: dry, intact - Assessment and Plan (1) Pneumonia Current Visit: Yes Status: Acute Assessment and Plan: presented with SOB and diffuse wheezing. CHEST CTA showed left perihilar opacity. Suspect community acquired pneumonia of unknown organism. Initially treated with IV ceftriaxone and Xanax. Change to Levaquin. Urinary antigens and respiratory PCR pending. (2) COPD exacerbation Current Visit: Yes Status: Acute Assessment and Plan: Has known COPD with chronic respiratory failure; wears O2 at 2 L [id number] at home. Presented with SOB and diffuse wheezing. Continue steroid worse, Levaquin, nebulizers. (3) Hypertension Current Visit: Yes Status: Chronic Assessment and Plan: per hx. BP controlled. Continue home BP medication. Monitor BP and titrate PRN DVT Prophylaxis: lovenox - Time Spent with Patient Total time spent is greater than 50% in coordination of care (as documented) at patient's floor/unit and/or counseling patient: Internal Medicine: Result - Labs CBC & Chem 7: 07/17/18 03:17 07/17/18 03:17 Labs: Short CBC 07/17/18 Range/Units 03:17 WBC 13.1 H (4.3-11.1) K/mcL Hgb 11.4 L (12.9-16.9) g/dL Hct 34.6 L (37.5-50.1) % Plt Count 227 (140-400) K/mcL Neutrophils # 10.5 H (1.6-8.9) K/mcL BMP 07/17/18 03:17 Sodium 140 Potassium 4.0 Chloride 110 H Carbon Dioxide 22 L BUN 20 Creatinine 0.64 L Glucose 121 H Calcium 8.7 Liver Function 07/17/18 Range/Units 03:17 Total Bilirubin 0.6 (0.3-1.0) mg/dL AST 13 (13-39) Units/L ALT 12 (7-52) Units/L Alkaline Phosphatase 65 (34-104) Units/L Albumin 3.6 (3.5-5.7) g/dL Consult Discharge Plan - Plan Referrals: Cam Parekh MD [Primary Care Provider] - (1) Pneumonia Qualifiers: Pneumonia type: due to unspecified organism Laterality: left Lung location: lower lobe of lung Qualified Code(s): J18.1 - Lobar pneumonia, unspecified organism (3) Hypertension Qualifiers: Hypertension type: essential hypertension Qualified Code(s): I10 - Essential (primary) hypertension
[2018-07-17 18:49] LABS: Adenovirus Not Detected (Not Detect); Bordetella Pertussis Not Detected (Not Detect); Chlamydophila pneumoniae Not Detected (Not Detect); Coronavirus 229E Not Detected (Not Detect); Coronavirus HKU1 Not Detected (Not Detect); Coronavirus NL63 Not Detected (Not Detect); Coronavirus OC43 Not Detected (Not Detect); Human Metapneumovirus Not Detected (Not Detect); Human Rhinovirus/Enterovirus Not Detected (Not Detect); Influenza A Subtype 2009 H1 Not Detected (Not Detect); Influenza A Untypeable Not Detected (Not Detect); Influenza B Not Detected (Not Detect); Mycoplasma pneumoniae Not Detected (Not Detect); Parainfluenza Virus 1 Not Detected (Not Detect); Parainfluenza Virus 2 Not Detected (Not Detect); Parainfluenza Virus 3 Not Detected (Not Detect); Parainfluenza Virus 4 Not Detected (Not Detect); Respiratory Syncytial Virus Not Detected (Not Detect)
[2018-07-18] MEDS: Ipratropium/Albuterol Neb 3 ML IH SCH ×3 (03:48→11:21)
[2018-07-18 05:12] LABS: Hematocrit 35.5 % (37.5-50.1); Hemoglobin 11.7 g/dL (12.9-16.9); Mean Corpuscular Volume 94.2 fL (83.0-100.0); Mean Platelet Volume 8.2 fL (9.4-12.4); Platelet Count 218 K/mcL (140-400); Red Blood Count 3.77 M/mcL (4.19-5.50); Red Cell Distribution Width 13.7 % (11.5-14.5)
[2018-07-18 05:31] LABS: BUN/Creatinine Ratio 27 (6-26); Blood Urea Nitrogen 18 mg/dL (8-23); Calcium 8.9 mg/dL (8.6-10.3); Carbon Dioxide 24 mEq/L (23-29); Chloride 110 mEq/L (98-107); Glucose 101 mg/dL (70-105); Osmolality,Calculated 296 (280-300); Potassium 4.1 mEq/L (3.5-5.1); Sodium 142 mEq/L (136-145); eGFR For Non-African Americans > 60 (> 60)
[2018-07-18] MEDS ORDERED: *HR* Enoxaparin 40 MG/0.4 ML SYRINGE SQ SCH (06:00)
[2018-07-18 06:51] VITALS: BP 128/78
--- NOTE | 2018-07-18 08:51 | Electrocardiograph Report ---
[address] [address] Test Date: 2018-07-16 Pat Name: Taryn Reddy Department: EXAM21 Room: 2NE16 Gender: M [employer] Manufacturing Technician: : 1955 Requested By: Mansoor Haile Order Number: [id number] Reading MD: Shara Ulloa Measurements Intervals [place] Rate: 95 P: 79 NC: 143 QRS: 84 QRSD: 99 T: -29 QT: 380 QTc: 478 Interpretive Statements Sinus rhythm Right atrial enlargement Borderline right axis deviation Borderline repolarization abnormality Borderline prolonged QT interval Electronically Signed On 07-18-2018 8:49:50 EST by Shara Ulloa
[2018-07-18] MEDS ORDERED: Levofloxacin 750 MG/150 ML 750 MG/150 ML BAG IVPB SCH (09:00)
[2018-07-18] MEDS: amLODIPine 5 MG TABLET PO SCH (09:27)
[2018-07-18] MEDS: predniSONE 20 MG TABLET PO SCH (09:28)
--- NOTE | 2018-07-18 10:40 | Discharge Summary ---
Orders not resulted at time of discharge: Pending orders Date of Encounter: 07/18/18 Time of Encounter: 10:37 - Discharge Diagnosis (1) Pneumonia Priority: Primary Status: Acute Assessment and Plan: presented with SOB and diffuse wheezing. Chest CTA showed left perihilar opacity. Urinary antigens and respiratory PCR negative. Suspect community acquired pneumonia of unknown organism. Sx's improved with IV ATB, steroids and nebilizers. Discharge home on Levaquin (to complete totoal course 7 days) and steroid burst. Recommend follow-up with [facility] with in one week Qualifiers: Pneumonia type: due to unspecified organism Laterality: left Lung location: lower lobe of lung Qualified Code(s): J18.1 - Lobar pneumonia, unspecified organism (2) COPD exacerbation Priority: Primary Status: Acute Assessment and Plan: Has known COPD with chronic respiratory failure; wears O2 at 2 L [id number] at home. Presented with SOB and diffuse wheezing. Plan as noted above. Cont home inhalers (3) Hypertension Priority: Secondary Status: Chronic Assessment and Plan: per hx. BP controlled. Continue home BP medication. Qualifiers: Hypertension type: essential hypertension Qualified Code(s): I10 - Essential (primary) hypertension Hospital course: see assessment and plan for hospital course - Time Spent with Patient Total time spent providing and/or coordinating discharge services: - Discharge Medications Prescriptions: levoFLOXacin [Levaquin] 750 mg PO DAILY #6 tablet predniSONE [PredniSONE] 40 mg PO DAILY #10 tablet Home Medications: Albuterol Sulfate [Ventolin Hfa] 2 puff IH Q4-6H PRN 07/16/18 [History] Amlodipine Besylate 10 mg PO DAILY 07/16/18 [History] Budesonide/Formoterol 80/4.5 [Symbicort 80/4.5] 2 puff IH BID 07/16/18 [History] Famotidine/Ca Carb/Mag Hydrox [Pepcid Complete Tablet Chew] 1 tab PO QPM PRN 07/16/18 [History] Propranolol [Inderal] 10 mg PO TID 07/16/18 [History] Quetiapine Fumarate [Seroquel] 50 mg PO HS 07/16/18 [History] Simvastatin [Zocor] 20 mg PO HS 07/16/18 [History] Umeclidinium [place] [Incruse Ellipta] 62.5 mcg IH DAILY 07/16/18 [History] levoFLOXacin [Levaquin] 750 mg PO DAILY #6 tablet 07/18/18 [Rx] predniSONE [PredniSONE] 40 mg PO DAILY #10 tablet 07/18/18 [Rx] Allergies/Adverse Reactions: Allergy/AdvReac Type Severity Reaction Status Date / Time lorazepam [From Ativan] AdvReac Confusion Verified 07/16/18 08:33 Date of admission: 07/16/18 02:37 Primary care physician: Cam Parekh MD Discharging clinician: Luisana Fajardo Anticipated date of discharge: 07/18/18 - Constitutional Vitals: Temp Pulse Resp BP Pulse Ox 97.9 F 80 16 128/78 94 07/18/18 06:45 07/18/18 06:45 07/18/18 07:21 07/18/18 06:45 07/18/18 07:21 General appearance: Present: cooperative, A&O X 3, pleasant, no acute distress, answers questions appropriately Exam: . - Head Head exam: Present: atraumatic, normocephalic - Eye Eye exam: Present: PERRL, conjuntiva pink, sclera anicteric Pupils: Present: PERRL - Neck Neck exam general surgery: Present: supple, trachea midline. Absent: lymphadenopathy - Respiratory Respiratory exam: Present: CTAB, wheezes (faint wheezes; overall improved ). Absent: accessory muscle use, rales, respiratory distress, rhonchi - Cardiovascular Cardiovascular exam: Present: RRR, +S1, +S2. Absent: diastolic murmur, gallop, rubs, systolic murmur - GI/Abdominal GI/Abdominal exam: Present: normal bowel sounds, soft, no peritoneal signs. Absent: distended, tenderness - Extremities Exam Extremities exam: Present: warm, radial pulses palpable and symmetrical. Absent: calf tenderness, cyanotic, pedal edema - Neurological Exam Neurological exam: Present: CN II-XII intact, oriented X3, no focal deficits. Absent: pronater drift, facial droop, speech deficit - Skin Skin exam: Present: dry, intact - Patient Status Disposition: Home, Self-Care Condition: Good Functional capacity at discharge: independent ambulation Overall status at discharge: patient is progressing back to baseline - Discharge Instructions Instructions: Chronic Obstructive Pulmonary Disease (DC), Community-acquired Pneumonia (DC), Levofloxacin (By mouth), Prednisone (By mouth) Follow Up With: Cam Parekh MD [Primary Care Provider] - (Please itzel for follow-up appointment within one week ) - Diet and Activity Activity: increase activity as tolerated Diet: advance to your usual diet
== END 2018-07-18 12:25 | disposition home or self-care (01) ==
LOC: EMEROOARM 23:58 → 2NENU 23:58
PROVIDERS: ADMIT Pediatrics; ATTEND Pediatrics

== ENCOUNTER 2019-01-14 21:26 | Observation (INO) ==
[2019-01-14] MEDS ORDERED: Ipratropium/Albuterol Neb 3 ML IH ONE (21:41)
[2019-01-14 21:59] LABS: Basophils % 0.2 %; Eosinophils # 0.1 K/mcL (0.0-0.6); Eosinophils % 0.4 %; Hematocrit 41.2 % (37.5-50.1); Hemoglobin 13.7 g/dL (12.9-16.9); Immature Granulocytes % 0.8 % (0-4); Lymphocytes # 1.4 K/mcL (0.6-4.6); Lymphocytes % 5.6 %; Mean Corpuscular HGB Conc 33.3 g/dL (31.6-35.5); Mean Corpuscular Hemoglobin 30.7 pg (28.0-33.3); Mean Corpuscular Volume 92.4 fL (83.0-100.0); Mean Platelet Volume 8.3 fL (9.4-12.4); Monocytes # 1.7 K/mcL (0.0-1.3); Neutrophils # 21.3 K/mcL (1.6-8.9); Platelet Count 189 K/mcL (140-400); Red Blood Count 4.46 M/mcL (4.19-5.50); Red Cell Distribution Width 14.6 % (11.5-14.5)
[2019-01-14 22:03] LABS: Basophils # 0.1 K/mcL (0.0-0.2)
[2019-01-14] MEDS ORDERED: Piperacillin/Tazobactam 3.375 GM in 0.9 % Sodium Chloride Mini Bag 100 ML IVPB ONE (22:03)
[2019-01-14 22:04] LABS: VBG HCO3 31 mEq/L (21-27); VBG PCO2 51 mmHg (41-51); VBG PH 7.39 pH Units (7.32-7.42); VBG PO2 32 mmHg (25-50)
[2019-01-14 22:14] LABS: BUN/Creatinine Ratio 13 (6-26); Blood Urea Nitrogen 10 mg/dL (8-23); Carbon Dioxide 32 mEq/L (23-29); Chloride 101 mEq/L (98-107); Glucose 112 mg/dL (70-105); Osmolality,Calculated 284 (280-300); Potassium 4.1 mEq/L (3.5-5.1); Sodium 137 mEq/L (136-145); eGFR For Non-African Americans > 60 (> 60)
--- NOTE | 2019-01-14 22:24 | Emergency Department Note ---
Disposition Clinical Impression: Hospital-acquired pneumonia, Elevated d-dimer COPD (chronic obstructive pulmonary disease) Qualifiers: COPD type: unspecified COPD Qualified Code(s): J44.9 - Chronic obstructive pulmonary disease, unspecified Disposition: Admitted As Inpatient Condition: Fair Referrals: NONE,PCP [Primary Care Provider] - Forms: ED Satisfaction Letter Time of Disposition: 00:06 SOB HPI - General Chief Complaint: ED Shortness of Breath/Dyspnea Stated Complaint: [place] Time Seen by Provider: 01/14/19 21:31 Source: patient Limitations: no limitations Nursing Notes Reviewed: Yes Vital Signs Reviewed: Yes - History of Present Illness 63 yo male with PMHx of COPD presents to the emergency department with the chief complaint of difficulty in breathing. The patient states that he was recently discharged from the hospital approximately a week and half ago for a COPD exacerbation. He had been doing better at home on 3 L until this morning when he woke up and felt significantly short of breath. He states that his home pulse ox read 85% on 3 L. He has been taking breathing treatments at home without improvement in his symptoms. He does have an increased cough productive of grayish sputum without any blood. He also admits to a slight temperature elevation of 100 degrees Fahrenheit at home today taken by his home health nurse. The patient denies chest pain, dizziness, abdominal pain, nausea and vomiting. He denies history of any blood clots. - Related Data Home Medications Medication Instructions Recorded Confirmed Albuterol Sulfate [Ventolin Hfa] 2 puff IH Q4-6H PRN 07/16/18 01/14/19 Budesonide/Formoterol 80/4.5 2 puff IH BID 07/16/18 01/14/19 [Symbicort 80/4.5] Famotidine/Ca Carb/Mag Hydrox 1 tab PO QPM PRN 07/16/18 01/14/19 [Pepcid Complete Tablet Chew] Propranolol [Inderal] 10 mg PO TID 07/16/18 01/14/19 Quetiapine Fumarate [Seroquel] 50 mg PO HS 07/16/18 01/14/19 Simvastatin [Zocor] 20 mg PO HS 07/16/18 01/14/19 Umeclidinium [place] [Incruse 1 puff PO DAILY 07/16/18 01/14/19 Ellipta] Amlodipine Besylate 10 mg PO QAM 12/31/18 01/14/19 Previous Rx's Medication Instructions Recorded Ipratropium/Albuterol Neb [Duoneb] 3 ml IH Q6H PRN #60 inhsol 01/04/19 Allergies Allergy/AdvReac Type Severity Reaction Status Date / Time lorazepam [From Ativan] AdvReac Hallucinating Verified 01/14/19 21:33 Confusion All systems ED: reviewed and negative except as stated. Review of Systems: As Per HPI Constitutional: Reports: fever, weakness Cardiovascular: Reports: dyspnea on exertion. Denies: chest pain, palpitations, orthopnea, edema Respiratory: Reports: cough, dyspnea, wheezes, sputum production. Denies: hemoptysis Gastrointestinal: Denies: abdominal pain, nausea, vomiting Musculoskeletal: Denies: back pain, neck pain Integumentary: Denies: rash Neurological: Reports: weakness. Denies: headache Endocrine: Reports: fatigue Past Medical History - Past Medical History Attestation: Yes The following information was validated with the patient. Source: patient Medical history: Reports: COPD, hyperlipidemia, hypertension Psychiatric history: Reports: anxiety - Social History Smoking Status: Former smoker Smokeless Tobacco Status: No Alcohol use: Reports: none Drug use: Reports: marijuana Physical Exam - General Limitations: no limitations General appearance: alert, in distress (mild respiratory distres) - Head Head exam: atraumatic, normocephalic - Eye Eye exam: Present: normal appearance, PERRL, EOMI - ENT ENT exam: normal exam, normal oropharynx - Neck Neck exam: Present: normal inspection. Absent: tenderness, lymphadenopathy - Chest Chest inspection: Present: normal inspection. Absent: tenderness, rash - Respiratory Respiratory exam: Present: other (diminished breath sounds with end expiratory wheezing heard throughout) - Cardiovascular Cardiovascular exam: Present: regular rate, normal rhythm - Abdominal Exam Abdominal exam: Present: soft, Non-Tender. Absent: distention, guarding, rebound, rigidity - Extremities Exam Extremities exam: Present: pedal edema (left leg swelling with 1+ pitting edema, no right leg edema). Absent: calf tenderness - Neurological Exam Neurological exam: Present: alert, oriented X3 - Psychiatric Psychiatric exam: Present: normal affect, normal mood - Skin Skin exam: Present: warm, dry, intact Course Vital Signs Temperature 98.4 F 01/14/19 21:34 Pulse Rate 99 01/14/19 21:34 Respiratory Rate 20 01/14/19 21:34 Blood Pressure 135/85 01/14/19 21:34 O2 Sat by Pulse Oximetry 95 01/14/19 21:34 Temperature 98.4 F 01/14/19 21:34 Pulse Rate 98 01/14/19 22:59 Respiratory Rate 17 01/14/19 22:59 Blood Pressure 133/74 01/14/19 22:59 O2 Sat by Pulse Oximetry 94 01/14/19 22:59 Oxygen Delivery Oxygen Delivery Room Air Shortness of Breath/Dyspnea - MDM Narrative Medical decision making narrative: Patient with recent discharge from the hospital presents with acute onset shortness of breath starting this morning. We will obtain EKG, chest x-ray, and lab work including troponin as well as give the patient 3 duo nebs. Patient's chest x-ray shows a new right lower lobe infiltrate, due to the new pneumonia in the recent admission we will cover the patient with vancomycin and Zosyn. He will also be given Solu-Medrol as his breathing did improve with the duo nebs. D-dimer was elevated but has decreased since his admission, and since he had a negative Doppler of both lower extremities and negative CTA chest on his previous admission we will not repeat these tests now. The patient has been admitted to the hospitalist Dr. Schneider for better control of his breathing and treatment of his pneumonia. - Medical Records Medical records reviewed: Yes I reviewed the patient's medical records. - Lab Data Lab results reviewed: Yes I reviewed the patient's lab results. Result diagrams: 01/14/19 21:51 01/14/19 21:51 Lab Results 01/14/19 01/14/19 01/14/19 Range/Units 21:51 21:51 21:51 WBC 24.8 H (4.3-11.1) K/mcL RBC 4.46 (4.19-5.50) M/mcL Hgb 13.7 (12.9-16.9) g/dL Hct 41.2 (37.5-50.1) % MCV 92.4 (83.0-100.0) fL MCH 30.7 (28.0-33.3) pg MCHC 33.3 (31.6-35.5) g/dL RDW 14.6 H (11.5-14.5) % Plt Count 189 (140-400) K/mcL MPV 8.3 L (9.4-12.4) fL Immature Gran % 0.8 (0-4) % Seg Neutrophils % 86.0 % Lymphocytes % 5.6 % Monocytes % 7.0 % Eosinophils % 0.4 % Basophils % 0.2 % Neutrophils # 21.3 H (1.6-8.9) K/mcL Lymphocytes # 1.4 (0.6-4.6) K/mcL Monocytes # 1.7 H (0.0-1.3) K/mcL Eosinophils # 0.1 (0.0-0.6) K/mcL Basophils # 0.1 (0.0-0.2) K/mcL Platelet Estimate Normal (Normal) D-Dimer 1262 H (0-500) ng/mLFEU VBG pH (7.32-7.42) pH Units VBG pCO2 (41-51) mmHg VBG pO2 (25-50) mmHg VBG HCO3 (21-27) mEq/L Sodium 137 (136-145) mEq/L Potassium 4.1 (3.5-5.1) mEq/L Chloride 101 (98-107) mEq/L Carbon Dioxide 32 H (23-29) mEq/L BUN 10 (8-23) mg/dL Creatinine 0.77 (0.70-1.30) mg/dL Est GFR ( Amer) > 60 (> 60) Est GFR (Non-Af Amer) > 60 (> 60) BUN/Creatinine Ratio 13 (6-26) Glucose 112 H (70-105) mg/dL Calculated Osmolality 284 (280-300) Calcium 9.0 (8.6-10.3) mg/dL Troponin I < 0.03 (< 0.04) ng/mL 01/14/19 Range/Units 22:01 WBC (4.3-11.1) K/mcL RBC (4.19-5.50) M/mcL Hgb (12.9-16.9) g/dL Hct (37.5-50.1) % MCV (83.0-100.0) fL MCH (28.0-33.3) pg MCHC (31.6-35.5) g/dL RDW (11.5-14.5) % Plt Count (140-400) K/mcL MPV (9.4-12.4) fL Immature Gran % (0-4) % Seg Neutrophils % % Lymphocytes % % Monocytes % % Eosinophils % % Basophils % % Neutrophils # (1.6-8.9) K/mcL Lymphocytes # (0.6-4.6) K/mcL Monocytes # (0.0-1.3) K/mcL Eosinophils # (0.0-0.6) K/mcL Basophils # (0.0-0.2) K/mcL Platelet Estimate (Normal) D-Dimer (0-500) ng/mLFEU VBG pH 7.39 (7.32-7.42) pH Units VBG pCO2 51 (41-51) mmHg VBG pO2 32 (25-50) mmHg VBG HCO3 31 H (21-27) mEq/L Sodium (136-145) mEq/L Potassium (3.5-5.1) mEq/L Chloride (98-107) mEq/L Carbon Dioxide (23-29) mEq/L BUN (8-23) mg/dL Creatinine (0.70-1.30) mg/dL Est GFR ( Amer) (> 60) Est GFR (Non-Af Amer) (> 60) BUN/Creatinine Ratio (6-26) Glucose (70-105) mg/dL Calculated Osmolality (280-300) Calcium (8.6-10.3) mg/dL Troponin I (< 0.04) ng/mL - Radiology Data Radiology results reviewed: Yes I reviewed the patient's radiology results. - EKG Data EKG attestation: Yes I reviewed and interpreted this EKG. EKG results narrative: EKG obtained at 21:36 on 01/14/2019 Heart rate 95 bpm, PA interval 128, QRS duration 88, QT 342, QTC 4:30 Sinus rhythm without any ST segment elevations. Minimal ST segment depressions in the inferior leads. No other T-wave abnormalities. No significant changes when compared to previous EKG dated 12/31/2018.
[2019-01-14 22:26] LABS: Troponin I < 0.03 ng/mL (< 0.04)
[2019-01-14 22:36] LABS: Platelet Estimate Normal (Normal)
--- NOTE | 2019-01-14 23:15 | Emergency Department Note ---
Disposition Clinical Impression: Hospital-acquired pneumonia, Elevated d-dimer COPD (chronic obstructive pulmonary disease) Qualifiers: COPD type: unspecified COPD Qualified Code(s): J44.9 - Chronic obstructive pulmonary disease, unspecified Disposition: Admitted As Inpatient Condition: Fair Referrals: NONE,PCP [Primary Care Provider] - Forms: ED Satisfaction Letter General Adult HPI - General Chief complaint: ED Shortness of Breath/Dyspnea Stated complaint: [place] Time Seen by Provider: 01/14/19 21:31 Source: patient Limitations: no limitations Nursing Notes Reviewed: Yes Vital Signs Reviewed: Yes - History of Present Illness Pain Scale: 0 - Related Data Home Medications Medication Instructions Recorded Confirmed Albuterol Sulfate [Ventolin Hfa] 2 puff IH Q4-6H PRN 07/16/18 01/14/19 Budesonide/Formoterol 80/4.5 2 puff IH BID 07/16/18 01/14/19 [Symbicort 80/4.5] Famotidine/Ca Carb/Mag Hydrox 1 tab PO QPM PRN 07/16/18 01/14/19 [Pepcid Complete Tablet Chew] Propranolol [Inderal] 10 mg PO TID 07/16/18 01/14/19 Quetiapine Fumarate [Seroquel] 50 mg PO HS 07/16/18 01/14/19 Simvastatin [Zocor] 20 mg PO HS 07/16/18 01/14/19 Umeclidinium [place] [Incruse 1 puff PO DAILY 07/16/18 01/14/19 Ellipta] Amlodipine Besylate 10 mg PO QAM 12/31/18 01/14/19 Previous Rx's Medication Instructions Recorded Ipratropium/Albuterol Neb [Duoneb] 3 ml IH Q6H PRN #60 inhsol 01/04/19 Allergies Allergy/AdvReac Type Severity Reaction Status Date / Time lorazepam [From Ativan] AdvReac Hallucinating Verified 01/14/19 21:33 Confusion Constitutional: Reports: fever, weakness Cardiovascular: Reports: dyspnea on exertion. Denies: chest pain, palpitations, orthopnea, edema Respiratory: Reports: cough, dyspnea, wheezes, sputum production. Denies: hemoptysis Gastrointestinal: Denies: abdominal pain, nausea, vomiting Musculoskeletal: Denies: back pain, neck pain Integumentary: Denies: rash Neurological: Reports: weakness. Denies: headache Endocrine: Reports: fatigue Past Medical History - Past Medical History Medical history: Reports: COPD, hyperlipidemia, hypertension Psychiatric history: Reports: anxiety - Social History Smoking Status: Former smoker Smokeless Tobacco Status: No Alcohol use: Reports: none Drug use: Reports: marijuana Physical Exam - General Limitations: no limitations General appearance: alert, in distress (mild respiratory distres) Course Vital Signs Temperature 98.4 F 01/14/19 21:34 Pulse Rate 99 01/14/19 21:34 Respiratory Rate 20 01/14/19 21:34 Blood Pressure 135/85 01/14/19 21:34 O2 Sat by Pulse Oximetry 95 01/14/19 21:34 Temperature 98.4 F 01/14/19 21:34 Pulse Rate 98 01/14/19 22:59 Respiratory Rate 17 01/14/19 22:59 Blood Pressure 133/74 01/14/19 22:59 O2 Sat by Pulse Oximetry 94 01/14/19 22:59 Oxygen Delivery Oxygen Delivery Room Air Medical Decision Making - Medical Records Medical records reviewed: Yes I reviewed the patient's medical records. - Lab Data Lab results reviewed: Yes I reviewed the patient's lab results. Result diagrams: 01/14/19 21:51 01/14/19 21:51 Lab Results 01/14/19 01/14/19 01/14/19 Range/Units 21:51 21:51 21:51 WBC 24.8 H (4.3-11.1) K/mcL RBC 4.46 (4.19-5.50) M/mcL Hgb 13.7 (12.9-16.9) g/dL Hct 41.2 (37.5-50.1) % MCV 92.4 (83.0-100.0) fL MCH 30.7 (28.0-33.3) pg MCHC 33.3 (31.6-35.5) g/dL RDW 14.6 H (11.5-14.5) % Plt Count 189 (140-400) K/mcL MPV 8.3 L (9.4-12.4) fL Immature Gran % 0.8 (0-4) % Seg Neutrophils % 86.0 % Lymphocytes % 5.6 % Monocytes % 7.0 % Eosinophils % 0.4 % Basophils % 0.2 % Neutrophils # 21.3 H (1.6-8.9) K/mcL Lymphocytes # 1.4 (0.6-4.6) K/mcL Monocytes # 1.7 H (0.0-1.3) K/mcL Eosinophils # 0.1 (0.0-0.6) K/mcL Basophils # 0.1 (0.0-0.2) K/mcL Platelet Estimate Normal (Normal) D-Dimer 1262 H (0-500) ng/mLFEU VBG pH (7.32-7.42) pH Units VBG pCO2 (41-51) mmHg VBG pO2 (25-50) mmHg VBG HCO3 (21-27) mEq/L Sodium 137 (136-145) mEq/L Potassium 4.1 (3.5-5.1) mEq/L Chloride 101 (98-107) mEq/L Carbon Dioxide 32 H (23-29) mEq/L BUN 10 (8-23) mg/dL Creatinine 0.77 (0.70-1.30) mg/dL Est GFR ( Amer) > 60 (> 60) Est GFR (Non-Af Amer) > 60 (> 60) BUN/Creatinine Ratio 13 (6-26) Glucose 112 H (70-105) mg/dL Calculated Osmolality 284 (280-300) Calcium 9.0 (8.6-10.3) mg/dL Troponin I < 0.03 (< 0.04) ng/mL 01/14/19 Range/Units 22:01 WBC (4.3-11.1) K/mcL RBC (4.19-5.50) M/mcL Hgb (12.9-16.9) g/dL Hct (37.5-50.1) % MCV (83.0-100.0) fL MCH (28.0-33.3) pg MCHC (31.6-35.5) g/dL RDW (11.5-14.5) % Plt Count (140-400) K/mcL MPV (9.4-12.4) fL Immature Gran % (0-4) % Seg Neutrophils % % Lymphocytes % % Monocytes % % Eosinophils % % Basophils % % Neutrophils # (1.6-8.9) K/mcL Lymphocytes # (0.6-4.6) K/mcL Monocytes # (0.0-1.3) K/mcL Eosinophils # (0.0-0.6) K/mcL Basophils # (0.0-0.2) K/mcL Platelet Estimate (Normal) D-Dimer (0-500) ng/mLFEU VBG pH 7.39 (7.32-7.42) pH Units VBG pCO2 51 (41-51) mmHg VBG pO2 32 (25-50) mmHg VBG HCO3 31 H (21-27) mEq/L Sodium (136-145) mEq/L Potassium (3.5-5.1) mEq/L Chloride (98-107) mEq/L Carbon Dioxide (23-29) mEq/L BUN (8-23) mg/dL Creatinine (0.70-1.30) mg/dL Est GFR ( Amer) (> 60) Est GFR (Non-Af Amer) (> 60) BUN/Creatinine Ratio (6-26) Glucose (70-105) mg/dL Calculated Osmolality (280-300) Calcium (8.6-10.3) mg/dL Troponin I (< 0.04) ng/mL - Radiology Data Radiology results reviewed: Yes I reviewed the patient's radiology results. Chest X-Ray 01/14/19 21:41 IMPRESSION: Interval development of a right lower lobe pneumonia. There is underlying apical predominant emphysema. Follow-up to complete clearing is recommended. Pulmonary nodules noted on the chest CT of 12/31/2018 are not well visualized on this portable study. D/ / Wali Durán MD / Wali Durán MD Interpreting Provider: Wali Durán MD - EKG Data EKG #1 EKG attestation: Yes I reviewed and interpreted this EKG. EKG results narrative: EKG shows a normal sinus rhythm with ventricular rate of 95. Minimal ST segment depressions in inferior leads but less than 0.[address] segment elevation. Otherwise normal with no significant change from 12/31/2018. Attestation Statement - Attestation Attestation: I, Bronson Majano MD, personally evaluated this patient and discussed their management with the resident physician. I reviewed the resident's note and agree with the documented findings, medical decision making, and plan of care. 63-year-old male presents to the emergency department with a complaint of increased shortness of breath since he awoke this morning. He also states he had a low-grade fever this morning. He was just discharged from the hospital possibly 9 days ago for an exacerbation of COPD. Since going home he has had increased his oxygen from 2 L to 3 L continuously. He states his oxygen saturat ions have been running 95-98% on 3 L however this morning when he woke up and was more short of breath his oxygen saturation was 85% on his oxygen. No increased cough. He has had his usual cough with some grayish sputum production. No chest pain. Patient has swelling of the left leg greater than the right but he states that this is not new. He reports that he had an ultrasound on the leg 2 weeks ago to rule out DVT which was negative. He also had a CTA of the chest on his recent hospitalization. On examination patient is a well-developed well-nourished male in no acute distress. He is alert and oriented 3. There is no cyanosis or diaphoresis. Chest is nontender to palpation. Breath sounds are markedly decreased bilaterally. Heart regular rate and rhythm. Abdomen soft and nontender with normal bowel sounds. There is swelling of the left lower leg with no calf tenderness. Negative Homans sign. EKG shows a normal sinus rhythm with ventricular rate of 95. Minimal ST segment depressions in inferior leads but less than 0.[address] segment elevation. Otherwise normal with no significant change from 12/31/2018. Chest x-ray shows an interval development of a right lower lobe pneumonia. Labs reviewed. WBC 24.8. D-dimer is elevated at 1262 however this is less than half of what it was 2 weeks ago when he was hospitalized and it was over 2500. Troponin normal. Blood cultures obtained and IV antibiotics initiated. I reviewed the residents documentation and agree with the residents assessment and plan of care. I have personally had face to face time with the patient. I personally supervised and was present for the [place]/critical portions of the following procedures completed by the resident: EKG interpretation. The hospitalist, Dr. Schneider, was consulted and accepted admission of the patient.
[2019-01-15] MEDS ORDERED: methylPREDNISolone 125 MG/2 ML VIAL IVP ONE (00:03)
[2019-01-15] MEDS ORDERED: Naloxone 0.4 MG/ML INJ IVP PRN (06:07)
[2019-01-15] MEDS ORDERED: Albuterol 2.5 MG/3 ML NEBULIZER IH PRN (06:09)
--- NOTE | 2019-01-15 06:55 | Internal Med History&Physical ---
Date of Encounter: 01/15/19 Time of Encounter: 05:20 Internal Medicine - H&P: HPI Chief complaint: Pneumonia Admitted From: Emergency Dept Plans for Post Hospital Care: Home History of present illness: Mr. Reddy is a 63 year old male Patient presented to the emergency room with shortness of breath. He says that he was recently discharged from the hospital on January 04, and initially felt well but over the course of the subsequent days he gradually became worse. He says that he uses 3 L of oxygen at home all the time but despite this and breathing treatments his symptoms did not improve. His shortness of breath was worse with exertion, and he has had increased productive cough. He then had his [id number] drive him to the emergency room for further evaluation. In the emergency room patient's initial vital signs: Temperature 98.4. Pulse 99, respiratory rate 20 blood pressure 135/85. He was saturating 95% on 4 L. CBC revealed a white count of 24.8, but otherwise within normal limits. BMP was within normal limits. D-dimer was elevated at 1262 he has a history of elevated d-dimer, during his previous admission the d-dimer was 2528. He had lower extremity Dopplers and a CTA chest performed at that time and both were negative for thrombus and embolisms. Chest x-ray performed during this admission showed interval development of a right lower lobe pneumonia. EKG showed no significant change from previous. He was given breathing treatments, vancomycin and Zosyn in the emergency room. Blood cultures were drawn. He was admitted to the hospital for further management. Upon my evaluation, patient is resting comfortably in hospital bed in no acute distress. He denies chest pain, abdominal pain, nausea, vomiting, diarrhea and constipation. He says he is breathing better now. He would like something to eat and drink. He is a former smoker quitting about 6 months ago. He is a full code. Past Med Surg Social Fam HX - Past Medical History Medical history: COPD, hyperlipidemia, hypertension Additional medical history: Chronic Bronchitis, Psychiatric history: anxiety - Past Surgical History Additional surgical history: right ankle surgery - Social History Smoking Status: Former smoker Smokeless Tobacco Status: No Alcohol use: none Drug use: marijuana - Family History Father Living Status: Hx Family Cardiac Disorders: No Hx Family Respiratory Disorders: No Hx Family Cancer: Yes (colon) Mother Living Status: Hx Family Cardiac Disorders: No Hx Family Respiratory Disorders: Yes Hx Family Cancer: Yes (Uterine/ skin cancer) Hx Family GI Disorders: No Hx Family Endocrine Disorder: No Hx Family Neuromuscular Disorders: No Hx Family Neurologic Disorders: No Hx Family HEENT Disorders: No Hx Family Autoimmune Disorders: No Internal Medicine - H&P: Meds Albuterol Sulfate [Ventolin Hfa] 2 puff IH Q4-6H PRN 07/16/18 [History] Budesonide/Formoterol 80/4.5 [Symbicort 80/4.5] 2 puff IH BID 07/16/18 [History] Famotidine/Ca Carb/Mag Hydrox [Pepcid Complete Tablet Chew] 1 tab PO QPM PRN 07/16/18 [History] Propranolol [Inderal] 10 mg PO TID 07/16/18 [History] Quetiapine Fumarate [Seroquel] 50 mg PO HS 07/16/18 [History] Simvastatin [Zocor] 20 mg PO HS 07/16/18 [History] Umeclidinium [place] [Incruse Ellipta] 1 puff PO DAILY 07/16/18 [History] Amlodipine Besylate 10 mg PO QAM 12/31/18 [History] Ipratropium/Albuterol Neb [Duoneb] 3 ml IH Q6H PRN #60 inhsol 01/04/19 [Rx] Allergy/AdvReac Type Severity Reaction Status Date / Time lorazepam [From Ativan] AdvReac Hallucinating Verified 01/14/19 21:33 Confusion All Systems PM: A 10-system review of systems was performed and is negative for pertinent findings except as documented above in the HPI. - Constitutional Vitals: Temp Pulse Resp BP Pulse Ox 99.6 F 92 20 134/82 93 01/15/19 03:14 01/15/19 03:14 01/15/19 03:14 01/15/19 03:14 01/15/19 03:14 General appearance: Present: cooperative, A&O X 3, pleasant, no acute distress, answers questions appropriately Exam: - - Head Head exam: Present: normal inspection - Eye Eye exam: Present: EOMI, normal appearance - Respiratory Respiratory exam: Present: decreased breath sounds, rales. Absent: CTAB, wheezes - Cardiovascular Cardiovascular exam: Present: RRR. Absent: diastolic murmur, systolic murmur - GI/Abdominal GI/Abdominal exam: Present: normal bowel sounds, soft. Absent: tenderness - Extremities Exam Extremities exam: Present: warm, radial pulses palpable and symmetrical. Absent: pedal edema, tenderness - Neurological Exam Neurological exam: Present: no focal deficits, strengths equal and symetr throughout. Absent: motor sensory deficit, facial droop, speech deficit - Skin Skin exam: Present: dry, normal color, warm Internal Med - H&P Results - Labs CBC & Chem 7: 01/14/19 21:51 01/14/19 21:51 Labs: Short CBC 01/14/19 Range/Units 21:51 WBC 24.8 H (4.3-11.1) K/mcL Hgb 13.7 (12.9-16.9) g/dL Hct 41.2 (37.5-50.1) % Plt Count 189 (140-400) K/mcL Neutrophils # 21.3 H (1.6-8.9) K/mcL BMP 01/14/19 21:51 Sodium 137 Potassium 4.1 Chloride 101 Carbon Dioxide 32 H BUN 10 Creatinine 0.77 Glucose 112 H Calcium 9.0 Cardiac Enzymes 01/14/19 Range/Units 21:51 Troponin I < 0.03 (< 0.04) ng/mL - ABG Interpretation ABG results: 01/14/19 22:01 VBG pH 7.39 VBG pCO2 51 VBG pO2 32 VBG HCO3 31 H - Impressions ITS Impressions Chest X-Ray 01/14/19 21:41 IMPRESSION: Interval development of a right lower lobe pneumonia. There is underlying apical predominant emphysema. Follow-up to complete clearing is recommended. Pulmonary nodules noted on the chest CT of 12/31/2018 are not well visualized on this portable study. D/ / Wali Durán MD / Wali Durán MD Interpreting Provider: Wali Durán MD - Assessment and Plan (1) Pneumonia Current Visit: No Status: Acute Assessment and plan: Patient resented to the ER with shortness of breath, found to have right lower lobe pneumonia on chest x-ray. He was started on vancomycin and Zosyn in the ER. Blood cultures were drawn. Elevated white count could be secondary to steroid use. Follow-up blood cultures when available Continue vancomycin and Zosyn. Start Levaquin Monitor for worsening signs of infection Oxygen supplementation as needed Qualifiers: Pneumonia type: due to unspecified organism Laterality: left Lung location: lower lobe of lung Qualified Code(s): J18.1 - Lobar pneumonia, unspecified organism (2) Acute respiratory failure with hypoxia Current Visit: No Status: Acute Assessment and plan: Secondary to history of COPD and pneumonia. Treating pneumonia as above Continue breathing treatments and steroids. Oxygen supplementation as needed (3) Elevated d-dimer Current Visit: Yes Status: Acute Assessment and plan: Elevated d-dimer, improved from previous admission. (4) DVT prophylaxis Current Visit: No Status: Acute Assessment and plan: Subcutaneous heparin - Time Spent With Patient Total time spent is greater than 50% in coordination of care (as documented) at patient's floor/unit and/or counseling patient: Greater than 35 minutes
[2019-01-15] MEDS ORDERED: Vancomycin (wt based) 1,000 MG VIAL IVPB SCH (07:00)
[2019-01-15] MEDS: Levofloxacin 750 MG/150 ML 750 MG/150 ML BAG IVPB SCH (08:03)
[2019-01-15] MEDS: predniSONE 20 MG TABLET PO SCH (08:03)
[2019-01-15 08:18] LABS: Hematocrit 37.7 % (37.5-50.1); Hemoglobin 12.8 g/dL (12.9-16.9); Mean Corpuscular Hemoglobin 31.1 pg (28.0-33.3); Mean Corpuscular Volume 91.5 fL (83.0-100.0); Mean Platelet Volume 8.6 fL (9.4-12.4); Platelet Count 161 K/mcL (140-400); Red Blood Count 4.12 M/mcL (4.19-5.50); Red Cell Distribution Width 14.6 % (11.5-14.5)
[2019-01-15 08:45] LABS: BUN/Creatinine Ratio 15 (6-26); Blood Urea Nitrogen 11 mg/dL (8-23); Calcium 8.8 mg/dL (8.6-10.3); Carbon Dioxide 26 mEq/L (23-29); Chloride 100 mEq/L (98-107); Glucose 217 mg/dL (70-105); Osmolality,Calculated 288 (280-300); Potassium 3.9 mEq/L (3.5-5.1); Sodium 136 mEq/L (136-145); eGFR For Non-African Americans > 60 (> 60)
[2019-01-15] MEDS: Piperacillin/Tazobactam 3.375 GM in 0.9 % Sodium Chloride Mini Bag 100 ML IVPB SCH ×3 (09:44→23:42)
[2019-01-15] MEDS: Ipratropium/Albuterol Neb 3 ML IH SCH ×3 (10:36→22:11)
[2019-01-15] MEDS: Budesonide/Formoterol 160/4.5 1 PUFF INH IH SCH ×2 (10:36→22:11)
--- NOTE | 2019-01-15 13:46 | Event Note ---
Date of Encounter: 01/15/19 Time of Encounter: 13:45 H&P is reviewed. Patient is hemodynamically is stable, clinically improving. We will continue IV antibiotics, bronchodilators, steroids. We will continue to follow up.
[2019-01-15] MEDS: *HR* Heparin 5,000 UNIT/ML VIAL SQ SCH (17:21)
[2019-01-16] MEDS: Ipratropium/Albuterol Neb 3 ML IH SCH ×4 (04:08→21:38)
[2019-01-16] MEDS: *HR* Heparin 5,000 UNIT/ML VIAL SQ SCH ×2 (05:57→16:44)
[2019-01-16] MEDS: predniSONE 20 MG TABLET PO SCH (07:51)
[2019-01-16] MEDS: Levofloxacin 750 MG/150 ML 750 MG/150 ML BAG IVPB SCH (07:51)
[2019-01-16] MEDS: amLODIPine 5 MG TABLET PO SCH (07:51)
[2019-01-16 08:53] LABS: Basophils % 0.1 %; Hemoglobin 11.6 g/dL (12.9-16.9); Immature Granulocytes % 1.3 % (0-4); Lymphocytes # 0.7 K/mcL (0.6-4.6); Mean Corpuscular HGB Conc 33.1 g/dL (31.6-35.5); Mean Corpuscular Hemoglobin 31.2 pg (28.0-33.3); Mean Corpuscular Volume 94.1 fL (83.0-100.0); Mean Platelet Volume 8.9 fL (9.4-12.4); Monocytes # 0.7 K/mcL (0.0-1.3); Monocytes % 4.1 %; Neutrophils # 15.6 K/mcL (1.6-8.9); Platelet Count 164 K/mcL (140-400); Red Blood Count 3.72 M/mcL (4.19-5.50); Red Cell Distribution Width 14.6 % (11.5-14.5); Segmented Neutrophils % 90.5 %
[2019-01-16] MEDS ORDERED: Dextrose Gel 15 GM/37.5 ML TUBE PO PRN ×2 (09:00)
[2019-01-16] MEDS ORDERED: *HR* Dextrose 50 % in Water (Syg) 50 ML SYRINGE IVP PRN (09:00)
[2019-01-16] MEDS ORDERED: D5% in Water 1,000 ML IVC PRN (09:00)
--- NOTE | 2019-01-16 09:11 | Internal Med Progress Note ---
Hospitalist Progress Note - Encounter Date of Encounter: 01/16/19 Time of Encounter: 09:09 - Subjective Interval History: I have seen and evaluated patient on bedside. Patient reports improvement in his respiratory status, denies shortness of breath, chest pain, abdominal pain, nausea or vomiting. - Exam Vitals: Temp Pulse Resp BP Pulse Ox 97.5 F L 80 16 123/73 93 01/16/19 07:20 01/16/19 07:20 01/16/19 07:20 01/16/19 07:20 01/16/19 07:20 Exam: Vitals: Reviewed. General: Alert and oriented 4. In no distress. Cardiovascular: RRR, normal S1 & S2, no rubs, murmurs or gallops. Lungs: Minimal scatter expiratory wheezes bilaterally, no crackles. Abdomen: Soft, non-tender, no rigidity. Extremities: No deformity, no edema or tenderness, no joint swelling or clubbing. Neurological: Normal cognition and motor skills. Rest of the physical exam is non contributory - Assessment and Plan (1) Hospital-acquired pneumonia Current Visit: Yes Status: Acute Assessment and Plan: XR/XR chest 1V portable IMPRESSION: Interval development of a right lower lobe pneumonia. There is underlying apical predominant emphysema. Follow-up to complete clearing is recommended. Plan Sputum cultures: No growth. Urine for atypical: Negative Blood cultures: No growth pending final report. MRSA surveillance screen ordered. Discontinue levofloxacin Continue vancomycin per pharmacy protocol. And Piperacillin/tazobactam 3.375mg/IV Q8HRs (2) COPD (chronic obstructive pulmonary disease) Current Visit: Yes Status: Acute Assessment and Plan: Patient with minimal scattered bilateral expiratory wheezes. Continue bronchodilators as scheduled. On Symbicort. Continue prednisone 40 mg by mouth daily. Incentive spirometry. Continue oxygen, by nasal cannula titrate for O2 sat duration more than 92% (3) Acute on chronic respiratory failure with hypoxia and hypercapnia Current Visit: No Status: Resolved Assessment and Plan: Plan of care as above. (4) HLD (hyperlipidemia) Current Visit: No Status: Chronic Assessment and Plan: Continue simvastatin 20 mg by mouth at bedtime (5) Hypertension Current Visit: No Status: Chronic Assessment and Plan: Blood pressures well controlled. Patient is on amlodipine and propranolol. DVT Prophylaxis: On heparin 5000 units subcutaneous twice a day. - Summary of Assessment and Plan Summary of Assessment and Plan: Patient to remain in the hospital due to HCAP on broad spectrum IV antibiotics. Potential discharge tomorrow morning. - Time Spent with Patient Total time spent is greater than 50% in coordination of care (as documented) at patient's floor/unit and/or counseling patient: Greater than 35 minutes (40) Plan of Care Discussed with: patient (and the nurse.) Internal Medicine: Result - Labs CBC & Chem 7: 01/16/19 08:36 01/15/19 08:08 Labs: Short CBC 01/16/19 Range/Units 08:36 WBC 17.3 H (4.3-11.1) K/mcL Hgb 11.6 L (12.9-16.9) g/dL Hct 35.0 L (37.5-50.1) % Plt Count 164 (140-400) K/mcL Neutrophils # 15.6 H (1.6-8.9) K/mcL - ABG Interpretation ABG results: PT/INR, D-dimer 1262 ng/mLFEU (0-500) H 01/14/19 21:51 Consult Discharge Plan - Plan Referrals: NONE,PCP [Primary Care Provider] - (2) COPD (chronic obstructive pulmonary disease) Qualifiers: COPD type: unspecified COPD Qualified Code(s): J44.9 - Chronic obstructive pulmonary disease, unspecified (4) HLD (hyperlipidemia) Qualifiers: Hyperlipidemia type: unspecified Qualified Code(s): E78.5 - Hyperlipidemia, unspecified (5) Hypertension Qualifiers: Hypertension type: essential hypertension Qualified Code(s): I10 - Essential (primary) hypertension
[2019-01-16 09:13] LABS: BUN/Creatinine Ratio 25 (6-26); Blood Urea Nitrogen 18 mg/dL (8-23); Calcium 8.8 mg/dL (8.6-10.3); Carbon Dioxide 24 mEq/L (23-29); Chloride 103 mEq/L (98-107); Glucose 131 mg/dL (70-105); Magnesium 2.1 mg/dL (1.6-2.6); Osmolality,Calculated 288 (280-300); Phosphorous 2.8 mg/dL (2.7-4.5); Potassium 3.6 mEq/L (3.5-5.1); Sodium 137 mEq/L (136-145); eGFR For Non-African Americans > 60 (> 60)
[2019-01-16] MEDS: Piperacillin/Tazobactam 3.375 GM in 0.9 % Sodium Chloride Mini Bag 100 ML IVPB SCH ×2 (09:43→16:44)
[2019-01-16] MEDS: Budesonide/Formoterol 160/4.5 1 PUFF INH IH SCH ×2 (09:49→21:38)
[2019-01-16] MEDS: Insulin LISPRO 300 UNITS/3 ML VIAL SQ SCH ×2 (11:25→16:43)
[2019-01-17] MEDS: Piperacillin/Tazobactam 3.375 GM in 0.9 % Sodium Chloride Mini Bag 100 ML IVPB SCH ×2 (00:45→07:59)
[2019-01-17] MEDS: Ipratropium/Albuterol Neb 3 ML IH SCH ×2 (04:08→10:04)
[2019-01-17] MEDS: *HR* Heparin 5,000 UNIT/ML VIAL SQ SCH (06:16)
[2019-01-17 07:20] VITALS: BP 116/69
[2019-01-17] MEDS: Insulin LISPRO 300 UNITS/3 ML VIAL SQ SCH (07:56)
[2019-01-17] MEDS: amLODIPine 5 MG TABLET PO SCH (07:58)
[2019-01-17] MEDS: predniSONE 20 MG TABLET PO SCH (07:59)
[2019-01-17 08:32] LABS: Basophils % 0.1 %; Eosinophils % 0.3 %; Hematocrit 31.6 % (37.5-50.1); Hemoglobin 10.5 g/dL (12.9-16.9); Immature Granulocytes % 0.6 % (0-4); Lymphocytes # 1.3 K/mcL (0.6-4.6); Lymphocytes % 11.8 %; Mean Corpuscular HGB Conc 33.2 g/dL (31.6-35.5); Mean Corpuscular Hemoglobin 31.1 pg (28.0-33.3); Mean Corpuscular Volume 93.5 fL (83.0-100.0); Mean Platelet Volume 8.5 fL (9.4-12.4); Monocytes # 0.7 K/mcL (0.0-1.3); Monocytes % 6.5 %; Neutrophils # 8.6 K/mcL (1.6-8.9); Platelet Count 161 K/mcL (140-400); Red Blood Count 3.38 M/mcL (4.19-5.50); Red Cell Distribution Width 14.8 % (11.5-14.5); Segmented Neutrophils % 80.7 %
[2019-01-17 08:50] LABS: BUN/Creatinine Ratio 31 (6-26); Blood Urea Nitrogen 22 mg/dL (8-23); Calcium 8.6 mg/dL (8.6-10.3); Carbon Dioxide 27 mEq/L (23-29); Chloride 108 mEq/L (98-107); Glucose 108 mg/dL (70-105); Magnesium 2.2 mg/dL (1.6-2.6); Osmolality,Calculated 298 (280-300); Phosphorous 2.2 mg/dL (2.7-4.5); Potassium 3.6 mEq/L (3.5-5.1); Sodium 142 mEq/L (136-145); eGFR For Non-African Americans > 60 (> 60)
--- NOTE | 2019-01-17 09:31 | Discharge Summary ---
Orders not resulted at time of discharge: Pending orders 01/14/19 22:12 Culture,Blood [BC] Stat 01/16/19 08:36 Hgb A1C Routine Date of Encounter: 01/17/19 Time of Encounter: 09:27 - Discharge Diagnosis (1) Hospital-acquired pneumonia Priority: Primary Status: Acute (2) COPD (chronic obstructive pulmonary disease) Priority: Secondary Status: Acute Qualifiers: COPD type: unspecified COPD Qualified Code(s): J44.9 - Chronic obstructive pulmonary disease, unspecified (3) Acute on chronic respiratory failure with hypoxia and hypercapnia Priority: Primary Status: Resolved (4) HLD (hyperlipidemia) Priority: Secondary Status: Chronic Qualifiers: Hyperlipidemia type: unspecified Qualified Code(s): E78.5 - Hyperlipidemia, unspecified (5) Hypertension Priority: Secondary Status: Chronic Qualifiers: Hypertension type: essential hypertension Qualified Code(s): I10 - Essential (primary) hypertension Hospital course: Mr. Reddy is a 63 year old male PMH COPD, hyperlipidemia, hypertension. mergency room with shortness of breath. He says that he was recently discharged from the hospital on January 04, and initially felt well but over the course of the subsequent days he gradually became worse. Patient was admitted to the hospital due to acute copd exacerbation and HCAP. XR/XR chest 1V portable IMPRESSION: Interval development of a right lower lobe pneumonia. There is underlying apical predominant emphysema. Follow-up to complete clearing is recommended. Patient was managed with IV steroids, and broad spectrum IV antibiotics for HCAP treatment. Blood culture: No growth. Urine for atypical organism: negative. Sputum culture: no growth. patient acute symptoms resolved. Oxygen requirements is back to his baseline and he is hemodynamically stable to be discharged home on oral antibiotics and steroids taper. - Time Spent with Patient Total time spent providing and/or coordinating discharge services: Time spent: Greater than 30 minutes (35) - Discharge Medications Prescriptions: New Amoxicillin/Clavulanate [Augmentin] 875 mg PO BIDWM 7 Days #14 tablet Continued Budesonide/Formoterol 80/4.5 [Symbicort 80/4.5] 2 puff IH BID Albuterol Sulfate [Ventolin Hfa] 2 puff IH Q4-6H PRN PRN Reason: Shortness Of Breath Umeclidinium [place] [Incruse Ellipta] 1 puff PO DAILY Simvastatin [Zocor] 20 mg PO HS Quetiapine Fumarate [Seroquel] 50 mg PO HS Propranolol [Inderal] 10 mg PO TID Famotidine/Ca Carb/Mag Hydrox [Pepcid Complete Tablet Chew] 1 tab PO QPM PRN PRN Reason: Heartburn Amlodipine Besylate 10 mg PO QAM Ipratropium/Albuterol Neb [Duoneb] 3 ml IH Q6H PRN #60 inhsol PRN Reason: Shortness Of Breath Home Medications: Albuterol Sulfate [Ventolin Hfa] 2 puff IH Q4-6H PRN 07/16/18 [History] Budesonide/Formoterol 80/4.5 [Symbicort 80/4.5] 2 puff IH BID 07/16/18 [History] Famotidine/Ca Carb/Mag Hydrox [Pepcid Complete Tablet Chew] 1 tab PO QPM PRN 07/16/18 [History] Propranolol [Inderal] 10 mg PO TID 07/16/18 [History] Quetiapine Fumarate [Seroquel] 50 mg PO HS 07/16/18 [History] Simvastatin [Zocor] 20 mg PO HS 07/16/18 [History] Umeclidinium [place] [Incruse Ellipta] 1 puff PO DAILY 07/16/18 [History] Amlodipine Besylate 10 mg PO QAM 12/31/18 [History] Ipratropium/Albuterol Neb [Duoneb] 3 ml IH Q6H PRN #60 inhsol 01/04/19 [Rx] Amoxicillin/Clavulanate [Augmentin] 875 mg PO BIDWM 7 Days #14 tablet 01/17/19 [Rx] Allergies/Adverse Reactions: Allergy/AdvReac Type Severity Reaction Status Date / Time lorazepam [From Ativan] AdvReac Hallucinating Verified 01/14/19 21:33 Confusion Date of admission: 01/15/19 00:38 Primary care physician: PCP NONE Consults: 01/15/19 06:09 Consult to Nurse Navigator [CONS] Routine Comment: 01/15/19 06:10 Consult to Nurse Navigator [CONS] Routine Comment: - Constitutional Vitals: Temp Pulse Resp BP Pulse Ox 97.6 F 76 17 116/69 93 01/17/19 07:19 01/17/19 07:19 01/17/19 07:19 01/17/19 07:19 01/17/19 07:19 General appearance: Present: cooperative, A&O X 3, pleasant, no acute distress, answers questions appropriately Exam: Vitals: Reviewed. General: Alert and oriented 4. In no distress. Cardiovascular: RRR, normal S1 & S2, no rubs, murmurs or gallops. Lungs: Minimal scatter expiratory wheezes bilaterally, no crackles. Abdomen: Soft, non-tender, no rigidity. Extremities: No edema Neurological: No focal neurologica abnormalities Rest of the physical exam is non contributory - Patient Status Disposition: Home, Self-Care Condition: Good Functional capacity at discharge: independent ambulation Overall status at discharge: patient is progressing back to baseline - Discharge Instructions Follow Up With: NONE,PCP [Primary Care Provider] - - Diet and Activity Activity: resume usual activities as tolerated, wear oxygen at all times (2-3 litters ) Diet: advance to your usual diet, low salt diet
[2019-01-17 09:45] LABS: Estimated Average Glucose 140 mg/dl; Hemoglobin A1C 6.5 %
--- NOTE | 2019-01-17 09:54 | Electrocardiograph Report ---
[address] [address] Test Date: 2019-01-14 Pat Name: Taryn Reddy Department: EXAM1 Room: 2A71 Gender: M [employer]: : 1955 Requested By: Clementine Calderon Order Number: [id number] Reading MD: Ascencion Mondragon Measurements Intervals [place] Rate: 95 P: 60 NV: 128 QRS: 75 QRSD: 88 T: 76 QT: 342 QTc: 430 Interpretive Statements Sinus rhythm Minimal ST depression, inferior leads Electronically Signed On 01-17-2019 9:52:58 EDT by Ascencion Mondragon
[2019-01-17] MEDS: Budesonide/Formoterol 160/4.5 1 PUFF INH IH SCH (10:04)
== END 2019-01-17 10:19 | disposition home or self-care (01) ==
LOC: 2ANU 21:26 → EMEROOARM 21:26 → SUATTDRO 01-15 00:38 → 2ANU 01-15 01:22
PROVIDERS: ADMIT Internal Medicine; ATTEND Internal Medicine